=== PATIENT | female | born 1935 ===

== ENCOUNTER → 2017-11-10 | Outpatient (CLI) | payer MEDICARE, BC ==
[2016-12-27 12:33] VITALS: BMI 20.3
[~2017-11-10] MED LIST: AMLO-96 PO; ASPI-1471 PO; CALC1TAB31 PO; CARB15DR70 OP; CHOL100059 PO; CHOL200038 PO; CIN30PT PO; CITA-137 PO; DICL100G39 TOP; DONE5TAB74 PO; FES4PT PO; FESO8PT PO; FLU45SYR25 IM ONLY; FLUO-177 PO; FLUO-201 PO; FLUO-202 PO; FLUO40CA76 PO; GUAI237L21 PO; IBUP100T51 PO; IBUP100T52 PO; IBUP1TAB90 PO; LEVO-3 PO; LEVO88TA45 PO; LISI-362 PO; LISI20TA29 PO; LISI30TA49 PO; LISI5TAB25 PO; LOPE-147 PO; MAG-65 PO; MELO-205 PO; MELO-207 PO; METO-233 PO; METO100T20 PO; MOM PO; NEBI10TA4 PO; POLY17PO25 PO; POTA-53 PO; SIMV-54 PO; SIMV10TA98 PO; SOLI10TA8 PO; SOLI5TAB PO; SPIR25TA78 PO; SULF-198 PO; TROS20TA4 PO; VIT1CAPS9 PO
== END ==
LOC: LAB 11:06
PROVIDERS: ATTEND Emergency Medicine
DX: E21.3 Hyperparathyroidism, unspecified (principal)
CPT/HCPCS: 36415; 82310

== ENCOUNTER → 2017-12-09 | Outpatient (CLI) | payer MEDICARE, BC ==
[2016-12-27 12:33] VITALS: BMI 20.3
[~2017-12-09] MED LIST changes: -CARB15DR70 OP; +CARB15DR72 OP
== END ==
LOC: ZZSPRING 02:41
PROVIDERS: ATTEND Emergency Medicine
DX: E21.3 Hyperparathyroidism, unspecified (principal)
CPT/HCPCS: 36415; 82310

== ENCOUNTER → 2018-01-06 | Outpatient (CLI) | payer MEDICARE, BC ==
[2016-12-27 12:33] VITALS: BMI 20.3
== END ==
LOC: ZZSPRING 01:09
PROVIDERS: ATTEND Emergency Medicine
DX: E21.3 Hyperparathyroidism, unspecified (principal)
CPT/HCPCS: 36415; 82310

== ENCOUNTER → 2018-02-10 | Outpatient (CLI) | payer MEDICARE, BC ==
[2016-12-27 12:33] VITALS: BMI 20.3
== END ==
LOC: ZZSPRING 01:28
PROVIDERS: ATTEND Emergency Medicine
DX: E21.3 Hyperparathyroidism, unspecified (principal)
CPT/HCPCS: 36415; 82310

== ENCOUNTER → 2018-03-10 | Outpatient (CLI) | payer MEDICARE, BC ==
[2016-12-27 12:33] VITALS: BMI 20.3
== END ==
LOC: ZZSPRING 01:36
PROVIDERS: ATTEND Emergency Medicine
DX: E21.3 Hyperparathyroidism, unspecified (principal)
CPT/HCPCS: 36415; 82310

== ENCOUNTER → 2018-03-23 | Outpatient (CLI) | payer MEDICARE, BC ==
[2016-12-27 12:33] VITALS: BMI 20.3
[~2018-03-23] MED LIST changes: +LEVO75TA73 PO; -SPIR25TA78 PO; +SPIR25TA80 PO
[2018-03-23 09:12] LABS: PLATELET COUNT, AUTOMATED 198 K/uL (150-450)
== END ==
LOC: LAB 08:41
PROVIDERS: ATTEND Emergency Medicine
DX: E21.3 Hyperparathyroidism, unspecified (principal); R53.81 Other malaise
CPT/HCPCS: 36415; 82040; 82247; 82306; 82310; 82374; 82435; 82565; 82947; 84075; 84132; 84155; 84295; 84443; 84450; 84460; 84520; 85025

== ENCOUNTER → 2018-04-14 | Outpatient (CLI) | payer MEDICARE, BC ==
[2016-12-27 12:33] VITALS: BMI 20.3
== END ==
LOC: ZZSPRING 01:02
PROVIDERS: ATTEND Emergency Medicine
DX: E21.3 Hyperparathyroidism, unspecified (principal)
CPT/HCPCS: 36415; 82310

== ENCOUNTER → 2018-05-12 | Outpatient (CLI) | payer MEDICARE, BC ==
[2016-12-27 12:33] VITALS: BMI 20.3
[~2018-05-12] MED LIST changes: +MEMA5TAB14 PO
== END ==
LOC: ZZSPRING 01:09
PROVIDERS: ATTEND Emergency Medicine
DX: E21.3 Hyperparathyroidism, unspecified (principal)
CPT/HCPCS: 36415; 82310

== ENCOUNTER 2018-06-01 10:57 | Emergency (ER) | payer MEDICARE, BC ==
[2016-12-27 12:33] VITALS: Wt 71.7 kg
[~2018-06-01 10:57] MED LIST changes: +AMLO-111 PO; -AMLO-96 PO; +VITA100014 PO
[2018-06-01] MEDS ORDERED: ASPIRIN 325 MG ENTERIC COATED PO ONE (11:25)
--- NOTE | 2018-06-01 11:26 | ER Report ---
History and Physical Time Seen By MD: 11:15 Hx. of Stated Complaint: chest pain (ROBYN VELAZQUEZ MD) HPI/ROS CHIEF COMPLAINT: chest pain HISTORY OF PRESENT ILLNESS: Patient is 82-year-old female without prior history of cardiac problems who was eating dinner last night after which she went to stand up and felt sudden onset of chest pain under her left breast. She states that the pain lasted approximately 2-3 minutes and did not radiate to arms shoulders or back, and was followed by very mild dull pain that went away after a few minutes. She states that pain briefly recurred this morning though not as it did last night. Patient has not had recent similar pain. Patient does not get exertional pain or shortness of breath. Patient reports history of stroke though does not recall details, and is not on blood thinner. 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 Patient was evaluated by her nurse this morning and sent here for further evaluation. Patient denies nausea, vomiting, shortness breath, stomach pain other than her baseline discomfort from constipation. Patient states her last stool was yesterday and was normal for her and is not obstipated date. Patient does not have new swelling or pain in legs. REVIEW OF SYSTEMS: Constitutional: No fever, no chills. Eyes: No discharge. ENT: No sore throat. Cardiovascular: above Respiratory: No cough, no shortness of breath. Gastrointestinal: No abdominal pain, no vomiting. Genitourinary: No hematuria. Musculoskeletal: No back pain. Skin: No rashes. Neurological: No headache. (ROBYN VELAZQUEZ MD) Allergies: Coded Allergies: Penicillins (Unverified Allergy, Unknown, Swelling, 06/01/18) acetaminophen (Unverified Allergy, Unknown, Swelling, 06/01/18) codeine (Verified Allergy, Unknown, MENTAL STATUS CHANGES, 06/01/18) trospium (Verified Adverse Reaction, Intermediate, Nausea and decreased appetite, 06/01/18) Home Meds Active Scripts Cinacalcet Hcl (SENSIPAR) 30 Mg Tablet, 1 TAB PO DAILY, #90 TAB 3 Refills Prov:SEAN OROZCO MD 05/21/18 Metoprolol Succinate (METOPROLOL SUCCINATE) 100 Mg Tab.er.24h, 1 TAB PO QDAY, #90 TAB 3 Refills Prov:SEAN OROZCO MD 05/19/18 Vitamin E (Dl,Tocopheryl Acet) (VITAMIN E) 1,000 Unit Capsule, 2000 UNIT PO DAILY, #60 CAPSULE 11 Refills Prov:SEAN OROZCO MD 05/19/18 Solifenacin Succinate (VESICARE) 10 Mg Tablet, 10 MG PO DAILY, #90 TAB 1 Refill Prov:SEAN OROZCO MD 04/16/18 Levothyroxine Sodium (LEVOTHYROXINE SODIUM) 75 Mcg Tablet, 75 MCG PO QDAY, #90 TAB 3 Refills Prov:SEAN OROZCO MD 04/16/18 Polyethylene Glycol 3350 (MIRALAX) 17 Gm Powd.pack, 17 GM PO DAILY, #90 PKT 3 Refills Prov:SEAN OROZCO MD 03/17/18 Citalopram Hydrobromide (CITALOPRAM HBR) 10 Mg Tablet, 10 MG PO QDAY, #90 TAB 3 Refills Prov:SEAN OROZCO MD 02/03/18 Amlodipine Besylate (AMLODIPINE BESYLATE) 5 Mg Tablet, 1 TAB PO QDAY, #90 TAB 4 Refills Prov:SEAN OROZCO MD 08/22/17 Aspirin (ASPIR 81) 81 Mg Tablet.dr, 1 TAB PO QDAY, #90 TAB 3 Refills Prov:SEAN OROZCO MD 08/22/17 Simvastatin (SIMVASTATIN) 40 Mg Tablet, 40 MG PO HS, #90 TAB 4 Refills Prov:SEAN OROZCO MD 08/22/17 Carboxymethylcellulose Sodium (REFRESH TEARS) 15 Ml Drops, 2 GTT OP BID, #1 BOT 11 Refills Prov:SEAN OROZCO MD 03/18/17 Carboxymethylcellulose Sodium (REFRESH TEARS) 15 Ml Drops, 15 ML OP BID, #3 BOT 3 Refills Prov:SEAN OROZCO MD 03/17/17 Reported Medications Guaifenesin/Dextromethorphan (Robitussin Cough-Chest Dm Liq) 100 Mg-5 Mg/5 Ml Liquid, 5 ML PO 05/05/17 Magnesium Hydroxide (MILK OF MAGNESIA) 400 Mg/5 Ml Oral.susp, 15 ML PO PRN for prn, BOTTLE 05/05/17 Mag Hydrox/Aluminum Hyd/Simeth (Maalox Advanced Suspension) 200 Mg-200 Mg-20 Mg/5 Ml Oral.susp, 15 ML PO PRN for prn 05/05/17 Loperamide Hcl (ANTI-DIARRHEA) 2 Mg Tablet, 2 TAB PO PRN for prn 05/05/17 Calcium Carbonate/Mag Hydrox (ANTACID EXTRA STRNGTH TAB CHEW) 1 Each Tab.chew, 2 TAB PO PRN for prn, TAB.CHEW 05/05/17 Cholecalciferol (Vitamin D3) (VITAMIN D3) 1,000 Unit Capsule, 1 CAP PO DAILY, CAPSULE 05/05/17 Reviewed Nurses Notes: Yes Old Medical Records Reviewed: Yes (ROBYN VELAZQUEZ MD) Hx Smoking: No Smoking Status: Never Smoker Exposure to Second Hand Smoke?: No Hx Substance Use Disorder: No Hx Alcohol Use: No (ROBYN VELAZQUEZ MD) Constitutional Vital Sign - Last 24 Hours 06/01/18 06/01/18 06/01/18 06/01/18 10:57 11:00 11:03 11:27 Pulse 60 60 Resp 11 B/P (MAP) 132/89 (103) Pulse Ox 92 O2 Delivery Nasal Cannula O2 Flow Rate 2.0 2 06/01/18 06/01/18 06/01/18 06/01/18 11:30 11:57 12:18 12:30 Pulse 60 Resp 14 B/P (MAP) 116/86 (96) 131/84 (100) 124/87 (99) Pulse Ox 92 O2 Delivery Nasal Cannula O2 Flow Rate 2 06/01/18 06/01/18 06/01/18 12:32 13:00 13:02 Pulse 60 59 Resp 17 B/P (MAP) 112/95 (101) Pulse Ox 97 O2 Delivery Nasal Cannula O2 Flow Rate 2 (MIROSLAVA VELAZQUEZ MD) Physical Exam General Appearance: The patient is alert, has no immediate need for airway protection and no signs of toxicity. Eyes: Pupils equal and round no pallor or injection. ENT, Mouth: Mucous membranes are moist. Respiratory: There are no retractions, lungs are clear to auscultation. Cardiovascular: Regular rate and rhythm. no m/r/g. No carotid bruit Gastrointestinal: Abdomen is soft; very mild ttp, no masses, bowel sounds normal. Neurological: alert, oriented, nad Skin: Warm and dry, no rashes. Musculoskeletal: Extremities are nontender, nonswollen and have full range of motion. DIFFERENTIAL DIAGNOSIS: After history and physical exam differential diagnosis was considered for chest pain including but not limited to myocardial ischemia, pericarditis pulmonary embolus, chest wall pain, pleural inflammation and pulmonary infectious causes, Aortic dissection (ROBYN VELAZQUEZ MD) Medical Decision Making Data Points Result Diagram: 06/01/18 1108 06/01/18 1108 Laboratory Hematology Test 06/01/18 11:08 Red Blood Count 4.87 M/uL (4.17-5.56) Mean Corpuscular Volume 90.2 fL (80.0-96.0) Mean Corpuscular Hemoglobin 30.5 pg (26.0-33.0) Mean Corpuscular Hemoglobin Concent 33.9 g/dL (32.0-36.0) Red Cell Distribution Width 14.6 % (11.5-14.5) Mean Platelet Volume 9.3 fL (7.2-11.1) Neutrophils (%) (Auto) 61.3 % (39.4-72.5) Lymphocytes (%) (Auto) 26.1 % (17.6-49.6) Monocytes (%) (Auto) 7.4 % (4.1-12.4) Eosinophils (%) (Auto) 4.0 % (0.4-6.7) Basophils (%) (Auto) 1.2 % (0.3-1.4) Nucleated RBC Relative Count (auto) 0.0 /100WBC Neutrophils # (Auto) 4.1 K/uL (2.0-7.4) Lymphocytes # (Auto) 1.7 K/uL (1.3-3.6) Monocytes # (Auto) 0.5 K/uL (0.3-1.0) Eosinophils # (Auto) 0.3 K/uL (0.0-0.5) Basophils # (Auto) 0.1 K/uL (0.0-0.1) Nucleated RBC Absolute Count (auto) 0.00 K/uL Sodium Level 141 mmol/L (137-145) Potassium Level 3.7 mmol/L (3.5-5.0) Chloride Level 105 mmol/L (98-107) Carbon Dioxide Level 26 mmol/L (22-31) Blood Urea Nitrogen 19 mg/dl (7-18) Creatinine 0.90 mg/dl (0.52-1.04) Glomerular Filtration Rate Calc 59.8 Random Glucose 101 mg/dl (75-110) Calcium Level 8.7 mg/dl (8.4-10.2) Total Bilirubin 0.6 mg/dl (0.2-1.3) Aspartate Amino Transf (AST/SGOT) 22 U/L (0-35) Alanine Aminotransferase (ALT/SGPT) 25 U/L (0-56) Alkaline Phosphatase 68 U/L (0-126) Troponin I < 0.012 ng/ml Total Protein 6.7 g/dl (6.3-8.2) Albumin 4.0 g/dl (3.5-5.0) Lipase 64 U/L (23-300) Chemistry Test 06/01/18 11:08 White Blood Count 6.7 k/uL (4.5-11.0) Red Blood Count 4.87 M/uL (4.17-5.56) Hemoglobin 14.9 g/dL (12.0-16.0) Hematocrit 44.0 % (34.0-47.0) Mean Corpuscular Volume 90.2 fL (80.0-96.0) Mean Corpuscular Hemoglobin 30.5 pg (26.0-33.0) Mean Corpuscular Hemoglobin Concent 33.9 g/dL (32.0-36.0) Red Cell Distribution Width 14.6 % (11.5-14.5) Platelet Count 219 K/uL (150-450) Mean Platelet Volume 9.3 fL (7.2-11.1) Neutrophils (%) (Auto) 61.3 % (39.4-72.5) Lymphocytes (%) (Auto) 26.1 % (17.6-49.6) Monocytes (%) (Auto) 7.4 % (4.1-12.4) Eosinophils (%) (Auto) 4.0 % (0.4-6.7) Basophils (%) (Auto) 1.2 % (0.3-1.4) Nucleated RBC Relative Count (auto) 0.0 /100WBC Neutrophils # (Auto) 4.1 K/uL (2.0-7.4) Lymphocytes # (Auto) 1.7 K/uL (1.3-3.6) Monocytes # (Auto) 0.5 K/uL (0.3-1.0) Eosinophils # (Auto) 0.3 K/uL (0.0-0.5) Basophils # (Auto) 0.1 K/uL (0.0-0.1) Nucleated RBC Absolute Count (auto) 0.00 K/uL Glomerular Filtration Rate Calc 59.8 Calcium Level 8.7 mg/dl (8.4-10.2) Total Bilirubin 0.6 mg/dl (0.2-1.3) Aspartate Amino Transf (AST/SGOT) 22 U/L (0-35) Alanine Aminotransferase (ALT/SGPT) 25 U/L (0-56) Alkaline Phosphatase 68 U/L (0-126) Troponin I < 0.012 ng/ml Total Protein 6.7 g/dl (6.3-8.2) Albumin 4.0 g/dl (3.5-5.0) Lipase 64 U/L (23-300) (MIROSLAVA VELAZQUEZ MD) EKG/Imaging EKG Interpretation 12 lead EKG: Rhythm: normal sinus rhythm [place]: normal QRS: normal ST segments: biphasic V4, flipped V5, flat T avR Monitor Interpretation: Normal Sinus Rhythm (ROBYN VELAZQUEZ MD) ED Course/Re-evaluation ED Course Patient presents approximately 15 hours after onset of left-sided chest pain last night which lasted for a couple minutes followed by a mild dull ache. Patient has not had similar significant pain in past. Initial evaluation unremarkable; will rpt 3 hour trop at which point consider stress testing v close f/u. However, pt would not be candidate fro cath intervention unless she rescinds DNR orders; reasonable for conservative management at this point with low posttest prob for ACS. (ROBYN VELAZQUEZ MD) ED Course The patient was initially seen for an episode of chest pain. The plan was to obtain a 2nd troponin 3 hours after the 1st in order to trend the troponins and determine definitive treatment. He was that although the patient did not want to undergo a cardiac catheterization, if she developed an NSTEMI she could be further medically managed. The patient asked to speak with me about the 2nd troponin. She told both myself and her nurse that she did not want the 2nd troponin. She was very clear that she does not care if she dies at the age of 82. I spoke with her at length. She is alert and oriented and mentally capable of making her own healthcare decisions. She denies SI. She does not seem depressed. She was smiling and laughing during our conversation. She states that she no longer has her home and no longer works, so she sees herself as already accomplishing everything she wanted to in life. I explained to her that if her 2nd troponin showed that she may have a blockage in her heart, it may be as simple as having her take a full aspirin a day instead of a baby aspirin. She said that she didn't even want that intervention. She states that she would continue to take a baby aspirin. I specifically told her that her decision could end up in if she had heart disease that was not optimally managed. She voiced that she understands completely. I even asked her if her family and friends would be upset with her decision, and she said no. I think this is reasonable. I think she is low risk for acute ACS, but a second troponin would have been the gold standard in this case. I am not going to make her sign out AMA. She will continue to take her 81mg ASA a day. Decision to Disposition Date: Jun 01, 2018 Decision to Disposition Time: 14:58 (MIROSLAVA VELAZQUEZ MD) Depart Departure Latest Vital Signs Vital Signs Date Time Temp Pulse Resp B/P (MAP) Pulse Ox O2 Delivery O2 Flow Rate FiO2 06/01/18 13:02 59 17 97 Nasal Cannula 2 06/01/18 13:00 112/95 (101) (MIROSLAVA VELAZQUEZ MD) Impression: Primary Impression: Chest pain Condition: Improved Disposition: HOME OR SELF-CARE Referrals: SEAN OROZCO MD (PCP) Patient Instructions: Chest Pain (ED) Problem Qualifiers Primary Impression: Chest pain Chest pain type: unspecified Qualified Codes: R07.9 - Chest pain, unspecified ROBYN VELAZQUEZ MD Jun 01, 2018 11:26 MIROSLAVA VELAZQUEZ MD Jun 01, 2018 14:59
[2018-06-01 11:37] LABS: PLATELET COUNT, AUTOMATED 219 K/uL (150-450)
--- NOTE | 2018-06-01 12:38 | EKG ---
FACILITY: [facility] - [place] PATIENT NAME: ANJELICA DELUNA : [id number] MR: [id number] V: [id number] EXAM DATE: ORDERING PHYSICIAN: ROBYN VELAZQUEZ TECHNOLOGIST: ANNETTE Test Reason : CP Blood Pressure : / mmHG Vent. Rate : 064 BPM Atrial Rate : 064 BPM P-R Int : 202 ms QRS Dur : 088 ms QT Int : 448 ms P-R-T Axes : 048 -09 030 degrees QTc Int : 462 ms Normal sinus rhythm Nonspecific T wave abnormality Abnormal ECG When compared with ECG of 26-DEC-2016 20:42, QT has lengthened Confirmed by KASHIF RAMÍREZ ([id number]) on 06/02/2018 6:38:01 AM Referred By: MARCUS Confirmed By:KASHIF RAMÍREZ
--- NOTE | 2018-06-01 13:50 | RADIOLOGY IMAGING REPORT ---
FACILITY: [facility] PATIENT NAME: Deidar More : 1935 MR: [id number] V: [id number] EXAM DATE: ORDERING PHYSICIAN: ROBYN VELAZQUEZ TECHNOLOGIST: Location: [facility] [place] Patient: Deidra More : 1935 Visit/Account:[id number] Date of Sevice: 06/01/2018 Exam type: CHEST PA AND LAT History: Chest pain Comparison: December 27, 2016. Findings: The lungs are free of acute effusions, infiltrates or edema. Nodular density projects over the later al aspect the left lung base which is related to a calcified left breast nodule seen on a prior CT. Cardiac silhouette is normal in size. There is moderate ectasia the thoracic aorta. 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 There are old right-sided rib fractures IMPRESSION: 1. No acute cardiopulmonary process seen Report Dictated By: Amanda Cazares MD at 06/01/2018 1:45 PM Report E-Signed By: Amanda Cazares MD at 06/01/2018 1:47 PM WSN:[id number]
[2018-06-01 14:30] VITALS: BP 163/96
== END 2018-06-01 15:05 | disposition home or self-care (01) ==
LOC: ER 11:24
DX: R07.89 Other chest pain (principal)
CPT/HCPCS: 71046; 83690; 84484; 85025; 93005; 99284; A9270; 82040; 82247; 82310; 82374; 82435; 82565; 82947; 84075; 84132; 84155; 84295; 84450; 84460; 84520

== ENCOUNTER → 2018-06-16 | Outpatient (CLI) | payer MEDICARE, BC ==
[2016-12-27 12:33] VITALS: BMI 20.3
== END ==
LOC: ZZSPRING 00:22
PROVIDERS: ATTEND Emergency Medicine
DX: E21.3 Hyperparathyroidism, unspecified (principal); I10 Essential (primary) hypertension; E87.6 Hypokalemia; E78.5 Hyperlipidemia, unspecified; E03.9 Hypothyroidism, unspecified
CPT/HCPCS: 36415; 82310; 84443

== ENCOUNTER → 2018-07-14 | Outpatient (CLI) | payer MEDICARE, BC ==
[2016-12-27 12:33] VITALS: BMI 20.3
[~2018-07-14] MED LIST changes: +DEN60I SUBQ
== END ==
LOC: ZZSPRING 02:13
PROVIDERS: ATTEND Emergency Medicine
DX: E21.3 Hyperparathyroidism, unspecified (principal); E03.9 Hypothyroidism, unspecified; I10 Essential (primary) hypertension; E87.6 Hypokalemia; E78.5 Hyperlipidemia, unspecified
CPT/HCPCS: 36415; 82310; 84443

== ENCOUNTER → 2018-08-11 | Outpatient (CLI) | payer MEDICARE, BC ==
[2016-12-27 12:33] VITALS: BMI 20.3
[~2018-08-11] MED LIST changes: +NITR0.4T3 SL
== END ==
LOC: ZZSPRING 00:55
PROVIDERS: ATTEND Emergency Medicine
DX: E21.3 Hyperparathyroidism, unspecified (principal)
CPT/HCPCS: 36415; 82310

== ENCOUNTER → 2018-09-10 | Outpatient (CLI) | payer MEDICARE, BC ==
[2016-12-27 12:33] VITALS: BMI 20.3
[~2018-09-10] MED LIST changes: -CALC1TAB31 PO; +CALC1TAB79 PO
== END ==
LOC: ZZSPRING 01:10
PROVIDERS: ATTEND Emergency Medicine
DX: E21.3 Hyperparathyroidism, unspecified (principal)
CPT/HCPCS: 36415; 82310

== ENCOUNTER → 2018-10-13 | Outpatient (CLI) | payer MEDICARE, BC ==
[2016-12-27 12:33] VITALS: BMI 20.3
[~2018-10-13] MED LIST changes: -AMLO-111 PO; +AMLO-125 PO
== END ==
LOC: ZZSPRING 01:04
PROVIDERS: ATTEND Emergency Medicine
DX: E21.3 Hyperparathyroidism, unspecified (principal)
CPT/HCPCS: 36415; 82310

== ENCOUNTER → 2018-11-10 | Outpatient (CLI) | payer MEDICARE, BC ==
[2016-12-27 12:33] VITALS: BMI 20.3
== END ==
LOC: ZZSPRING 11-09 08:04 → EDSTATUS 11-09 08:25 → ZZSPRING 02:53
PROVIDERS: ATTEND Emergency Medicine
DX: E21.3 Hyperparathyroidism, unspecified (principal)
CPT/HCPCS: 36415; 82310

== ENCOUNTER → 2018-12-08 | Outpatient (CLI) | payer MEDICARE, BC ==
[2016-12-27 12:33] VITALS: BMI 20.3
[~2018-12-08] MED LIST changes: +DIPH0.5D12 IM; +FLUO20TA2 PO; +PNEI IJ
== END ==
LOC: ZZSPRING 02:03
PROVIDERS: ATTEND Emergency Medicine
DX: E21.3 Hyperparathyroidism, unspecified (principal)
CPT/HCPCS: 36415; 82310

== ENCOUNTER → 2019-01-12 | Outpatient (CLI) | payer MEDICARE, BC ==
[2016-12-27 12:33] VITALS: BMI 20.3
[~2019-01-12] MED LIST changes: -DIPH0.5D12 IM; +DIPH0.5S2 IM
== END ==
LOC: ZZSPRING 00:59
PROVIDERS: ATTEND Emergency Medicine
DX: E21.3 Hyperparathyroidism, unspecified (principal)
CPT/HCPCS: 36415; 82310

== ENCOUNTER → 2019-02-09 | Outpatient (CLI) | payer MEDICARE, BC ==
[2016-12-27 12:33] VITALS: BMI 20.3
== END ==
LOC: EDSTATUS 07:09 → LAB 07:13
PROVIDERS: ATTEND Emergency Medicine
DX: E21.3 Hyperparathyroidism, unspecified (principal)
CPT/HCPCS: 36415; 82310

== ENCOUNTER → 2019-03-01 | Outpatient (CLI) | payer MEDICARE, BC ==
[2016-12-27 12:33] VITALS: BMI 20.3
[~2019-03-01] MED LIST changes: +SIMV-49 PO
[2019-03-01 10:04] LABS: PLATELET COUNT, AUTOMATED 192 K/uL (150-450)
== END ==
LOC: LAB 09:41
PROVIDERS: ATTEND Emergency Medicine
DX: M81.0 Age-related osteoporosis without current pathological fracture (principal); F32.9 Major depressive disorder, single episode, unspecified; E21.3 Hyperparathyroidism, unspecified; E78.5 Hyperlipidemia, unspecified; E03.9 Hypothyroidism, unspecified; I10 Essential (primary) hypertension
CPT/HCPCS: 36415; 82040; 82247; 82306; 82310; 82374; 82435; 82565; 82947; 84075; 84132; 84155; 84295; 84443; 84450; 84460; 84520; 85025

== ENCOUNTER → 2019-03-02 | Outpatient (CLI) | payer MEDICARE, BC ==
[2016-12-27 12:33] VITALS: BMI 20.3
== END ==
LOC: ZZSPRING 02:04
PROVIDERS: ATTEND Emergency Medicine
DX: E21.3 Hyperparathyroidism, unspecified (principal); M81.0 Age-related osteoporosis without current pathological fracture; I10 Essential (primary) hypertension; E03.9 Hypothyroidism, unspecified; E78.5 Hyperlipidemia, unspecified; F32.9 Major depressive disorder, single episode, unspecified; R29.6 Repeated falls
CPT/HCPCS: 36415; 81001; 82310

== ENCOUNTER 2019-03-06 11:02 | Emergency (ER) | payer MEDICARE, BC ==
[2016-12-27 12:33] VITALS: Wt 70.8 kg
[2019-03-06 11:06] VITALS: BP 152/101
--- NOTE | 2019-03-06 11:12 | ER Report ---
History and Physical Time Seen By MD: 11:10 HPI/ROS CHIEF COMPLAINT: Laceration left arm, fall HISTORY OF PRESENT ILLNESS: 83-year-old female patient presents to emergency room with complaint of laceration to the left arm. Patient did have a fall this morning. Patient states that she returned today, hit a table lost her balance and fell back. She states her head. Patient does have a deep laceration to the left forearm. Patient states she's not having any pain. She does have some bruising to the thumb and does have some tenderness there. She denies any fevers, chills, nausea, vomiting or diarrhea. Patient should have a headache, however the same headache that she has had intermittently for years. Patient states she is not taking any medication for this. She states that she is current on her tetanus shot. REVIEW OF SYSTEMS: Respiratory: No cough, no dyspnea. Cardiovascular: No chest pain, no palpitations. Gastrointestinal: No vomiting, no abdominal pain. Musculoskeletal: As noted above. Allergies: Coded Allergies: Penicillins (Unverified Allergy, Unknown, Swelling, 03/06/19) acetaminophen (Unverified Allergy, Unknown, Swelling, 03/06/19) codeine (Verified Allergy, Unknown, MENTAL STATUS CHANGES, 03/06/19) trospium (Verified Adverse Reaction, Intermediate, Nausea and decreased ap petite, 03/06/19) Home Meds Active Scripts Simvastatin (SIMVASTATIN) 20 Mg Tablet, 20 MG PO HS, #30 TAB 0 Refills Prov:SEAN OROZCO MD 03/05/19 Sulfamethoxazole/Trimet 800-160 Mg Tab (BACTRIM DS TABLET) 1 Each Tablet, 1 TAB PO Q12H, #20 TAB 0 Refills Prov:SEAN OROZCO MD 03/02/19 Solifenacin Succinate (VESICARE) 10 Mg Tablet, 10 MG PO DAILY, #30 TAB 11 Refills Prov:SEAN OROZCO MD 11/30/18 Fluoxetine Hcl (FLUOXETINE HCL) 20 Mg Tablet, 20 MG PO QDAY, #30 TAB 11 Refills Prov:SEAN OROZCO MD 11/16/18 Nitroglycerin (NITROGLYCERIN) 0.4 Mg Tab.subl, 0.4 MG SL Q5MIN, #20 TAB 0 Refills Prov:SEAN OROZCO MD 08/07/18 Amlodipine Besylate (AMLODIPINE BESYLATE) 5 Mg Tablet, 1 TAB PO QDAY, #90 TAB 1 Refill Prov:SEAN OROZCO MD 07/10/18 Metoprolol Succinate (METOPROLOL SUCCINATE) 100 Mg Tab.er.24h, 1 TAB PO QDAY, #90 TAB 3 Refills Prov:SEAN OROZCO MD 05/19/18 Levothyroxine Sodium (LEVOTHYROXINE SODIUM) 75 Mcg Tablet, 75 MCG PO QDAY, #90 TAB 3 Refills Prov:SEAN OROZCO MD 04/16/18 Carboxymethylcellulose Sodium (REFRESH TEARS) 15 Ml Drops, 2 GTT OP BID, #1 BOT 11 Refills Prov:SEAN OROZCO MD 03/18/17 Carboxymethylcellulose Sodium (REFRESH TEARS) 15 Ml Drops, 15 ML OP BID, #3 BOT 3 Refills Prov:SEAN OROZCO MD 03/17/17 Reported Medications Denosumab (PROLIA) 60 Mg/1 Ml Injs, 60 MG SUBQ Q6 months 06/22/18 Guaifenesin/Dextromethorphan (Robitussin Cough-Chest Dm Liq) 100 Mg-5 Mg/5 Ml L iquid, 5 ML PO 05/05/17 Magnesium Hydroxide (MILK OF MAGNESIA) 400 Mg/5 Ml Oral.susp, 15 ML PO PRN for prn, BOTTLE 05/05/17 Mag Hydrox/Aluminum Hyd/Simeth (Maalox Advanced Suspension) 200 Mg-200 Mg-20 Mg/5 Ml Oral.susp, 15 ML PO PRN for prn 05/05/17 Loperamide Hcl (ANTI-DIARRHEA) 2 Mg Tablet, 2 TAB PO PRN for prn 05/05/17 Calcium Carbonate/Mag Hydrox (ANTACID EXTRA STRNGTH TAB CHEW) 1 Each Tab.chew, 2 TAB PO PRN for prn, TAB.CHEW 05/05/17 Cholecalciferol (Vitamin D3) (VITAMIN D3) 1,000 Unit Capsule, 1 CAP PO DAILY, CAPSULE 05/05/17 Discontinued Scripts Cinacalcet Hcl (SENSIPAR) 30 Mg Tablet, 1 TAB PO Q3D, #45 TAB 3 Refills Prov:SEAN OROZCO MD 10/13/18 Simvastatin (SIMVASTATIN) 40 Mg Tablet, 40 MG PO HS, #90 TAB 1 Refill Prov:SEAN OROZCO MD 07/10/18 Vitamin E (Dl,Tocopheryl Acet) (VITAMIN E) 1,000 Unit Capsule, 2000 UNIT PO DAILY, #60 CAPSULE 11 Refills Prov:SEAN OROZCO MD 05/19/18 Polyethylene Glycol 3350 (MIRALAX) 17 Gm Powd.pack, 17 GM PO DAILY, #90 PKT 3 Refills Prov:SEAN OROZCO MD 03/17/18 Aspirin (ASPIR 81) 81 Mg Tablet.dr, 1 TAB PO QDAY, #90 TAB 3 Refills Prov:SEAN OROZCO MD 08/22/17 Past Medical/Surgical History Patient has a past medical history of CVA, hypertension, COPD, wears 2 L of oxygen at all time. Patient has a surgical history of hysterectomy. Reviewed Nurses Notes: Yes Hx Smoking: No Smoking Status: Never Smoker Exposure to Second Hand Smoke?: No Hx Substance Use Disorder: No Hx Alcohol Use: No Constitutional Vital Sign - Last 24 Hours 03/06/19 03/06/19 03/06/19 03/06/19 11:06 12:00 12:30 13:00 Temp 98.5 Pulse 60 60 58 56 Resp 20 11 13 32 B/P (MAP) 152/101 Pulse Ox 93 96 O2 Delivery Nasal Cannula Physical Exam General Appearance: The patient is alert, has no immediate need for airway protection and no current signs of toxicity. Respiratory: Chest is non tender, lungs are clear to auscultation. Cardiac: regular rate and rhythm Gastrointestinal: Abdomen is soft and non tender, no masses, bowel sounds normal. Musculoskeletal: Neck: Neck is supple and non tender. Extremities have full range of motion and are non tender. Patient does have some tenderness to the left thumb, she has bruising. Skin: No rashes or lesions. Patient has a 16 cm laceration to the left forearm, does go down into the subcutaneous tissue, ligaments are visualized, however there does not appear to be any ligamentous injury. DIFFERENTIAL DIAGNOSIS: After history and physical exam differential diagnosis was considered for laceration, intracranial hemorrhage, concussion, thumb fr acture. Medical Decision Making Data Points Result Diagram: 03/06/19 1120 03/06/19 1120 Laboratory Hematology Test 03/06/19 11:20 Red Blood Count 4.52 M/uL (4.17-5.56) Mean Corpuscular Volume 90.3 fL (80.0-96.0) Mean Corpuscular Hemoglobin 30.5 pg (26.0-33.0) Mean Corpuscular Hemoglobin Concent 33.7 g/dL (32.0-36.0) Red Cell Distribution Width 14.3 % (11.5-14.5) Mean Platelet Volume 8.6 fL (7.2-11.1) Neutrophils (%) (Auto) 66.0 % (39.4-72.5) Lymphocytes (%) (Auto) 22.6 % (17.6-49.6) Monocytes (%) (Auto) 6.8 % (4.1-12.4) Eosinophils (%) (Auto) 3.2 % (0.4-6.7) Basophils (%) (Auto) 1.4 % (0.3-1.4) Nucleated RBC Relative Count (auto) 0.0 /100WBC Neutrophils # (Auto) 4.0 K/uL (2.0-7.4) Lymphocytes # (Auto) 1.4 K/uL (1.3-3.6) Monocytes # (Auto) 0.4 K/uL (0.3-1.0) Eosinophils # (Auto) 0.2 K/uL (0.0-0.5) Basophils # (Auto) 0.1 K/uL (0.0-0.1) Nucleated RBC Absolute Count (auto) 0.00 K/uL Prothrombin Time 12.9 seconds (12.0-14.4) Prothromb Time International Ratio 0.97 Activated Partial Thromboplast Time 27 seconds (23-35) Sodium Level 140 mmol/L (137-145) Potassium Level 4.0 mmol/L (3.5-5.0) Chloride Level 107 mmol/L (98-107) Carbon Dioxide Level 24 mmol/L (22-31) Blood Urea Nitrogen 18 mg/dl (7-18) Creatinine 1.00 mg/dl (0.52-1.04) Glomerular Filtration Rate Calc 52.8 Random Glucose 105 mg/dl (75-110) Calcium Level 9.1 mg/dl (8.4-10.2) Total Bilirubin 0.7 mg/dl (0.2-1.3) Aspartate Amino Transf (AST/SGOT) 21 U/L (0-35) Alanine Aminotransferase (ALT/SGPT) 29 U/L (0-56) Alkaline Phosphatase 53 U/L (0-126) Total Protein 6.5 g/dl (6.3-8.2) Albumin 3.7 g/dl (3.5-5.0) Chemistry Test 03/06/19 11:20 White Blood Count 6.1 k/uL (4.5-11.0) Red Blood Count 4.52 M/uL (4.17-5.56) Hemoglobin 13.8 g/dL (12.0-16.0) Hematocrit 40.8 % (34.0-47.0) Mean Corpuscular Volume 90.3 fL (80.0-96.0) Mean Corpuscular Hemoglobin 30.5 pg (26.0-33.0) Mean Corpuscular Hemoglobin Concent 33.7 g/dL (32.0-36.0) Red Cell Distribution Width 14.3 % (11.5-14.5) Platelet Count 190 K/uL (150-450) Mean Platelet Volume 8.6 fL (7.2-11.1) Neutrophils (%) (Auto) 66.0 % (39.4-72.5) Lymphocytes (%) (Auto) 22.6 % (17.6-49.6) Monocytes (%) (Auto) 6.8 % (4.1-12.4) Eosinophils (%) (Auto) 3.2 % (0.4-6.7) Basophils (%) (Auto) 1.4 % (0.3-1.4) Nucleated RBC Relative Count (auto) 0.0 /100WBC Neutrophils # (Auto) 4.0 K/uL (2.0-7.4) Lymphocytes # (Auto) 1.4 K/uL (1.3-3.6) Monocytes # (Auto) 0.4 K/uL (0.3-1.0) Eosinophils # (Auto) 0.2 K/uL (0.0-0.5) Basophils # (Auto) 0.1 K/uL (0.0-0.1) Nucleated RBC Absolute Count (auto) 0.00 K/uL Prothrombin Time 12.9 seconds (12.0-14.4) Prothromb Time International Ratio 0.97 Activated Partial Thromboplast Time 27 seconds (23-35) Glomerular Filtration Rate Calc 52.8 Calcium Level 9.1 mg/dl (8.4-10.2) Total Bilirubin 0.7 mg/dl (0.2-1.3) Aspartate Amino Transf (AST/SGOT) 21 U/L (0-35) Alanine Aminotransferase (ALT/SGPT) 29 U/L (0-56) Alkaline Phosphatase 53 U/L (0-126) Total Protein 6.5 g/dl (6.3-8.2) Albumin 3.7 g/dl (3.5-5.0) Coagulation Test 03/06/19 11:20 Prothrombin Time 12.9 seconds Prothromb Time International Ratio 0.97 Activated Partial Thromboplast Time 27 seconds EKG/Imaging Imaging EXAMINATION: CT cervical spine without IV contrast HISTORY: Fall, hit head. Feels vessels atherosclerotic plaque of the aortic arch and carotid bulbs. COMPARISON: None. TECHNIQUE: Axial images were obtained from the skull base through the upper thoracic spine without IV contrast administration. Coronal and sagittal reformatted images were obtained from the axial source data. One of the following dose optimization techniques was utilized in the performance of this exam: Automated exposure control; adjustment of the mA and/or kV according to the patient's size; or use of an iterative rec onstruction technique. Specific details can be referenced in the facility's radiology CT exam operational policy. FINDINGS: Alignment: Normal. Cranio-cervical junction: Moderate joint space narrowing, sclerosis and bony spurring of the atlantoaxial joint, with a small pannus containing calcific ations. Vertebral bodies: Negative. Posterior elements: Mild facet hypertrophy at a few levels. Hardware: None. Disc spaces: Multilevel moderate to severe disc space narrowing and endplate sclerosis, worst at C5-6 and C6-7. Soft tissues: Negative. Visualized upper chest: Negative. IMPRESSION: 1. No acute fracture of the cervical spine. 2. Multilevel moderate to severe degenerative disc disease, and mild facet arthropathy. 3. 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 Report Dictated By: Victoria Rios MD at 03/06/2019 12:07 PM Report E-Signed By: Victoria Rios MD at 03/06/2019 12:11 PM EXAMINATION: Left forearm radiographs 2 views Left hand radiographs 3 views HISTORY: Fall with laceration, bruising to thumb. COMPARISON: None. FINDINGS: AP and lateral views of the left forearm, and PA, lateral and oblique views of the left hand are obtained. Bones: Bony structures are osteopenic. There is no acute fracture or dislocation visualized. Joint spaces: Mild joint space narrowing of the radiocarpal joint, severe joint space narrowing, sclerosis and bony spurring of the 1st CMC joint. Moderate joint space narrowing of the PIP and DIP joints, without bony erosions. Hardware: None. Alignment: Normal. Soft tissues: Negative. IMPRESSION: 1. Osteopenia without evidence of acute left forearm or left hand fracture. If the patient has persistent pain, repeat radiographs could be done in 7-10 days to assess for an occult fracture. 2. Mild degenerative joint disease of the left radiocarpal joint, severe degenerative joint disease of the left 1st CMC joint, and moderate degenerative joint disease and PIP and DIP joints, suspicious for osteoarthritis. Report Dictated By: Victoria Rios MD at 03/06/2019 12:11 PM Report E-Signed By: Victoria Rios MD at 03/06/2019 12:15 PM EXAMINATION: CT head without IV contrast HISTORY: Fall, hit head. COMPARISON: Brain MRI from 07/12/[address] head from 08/21/2016. TECHNIQUE: Contiguous axial images were obtained from the skull base to the vertex without intravenous contrast. Sagittal and coronal reformatted images are also submitted. One of the following dose optimization techniques was utilized in the performance of this exam: Automated exposure control; adjustment of the mA and/or kV according to the patient's size; or use of an iterative reconstruction technique. Specific details can be referenced in the facility's radiology CT exam operational policy. FINDINGS: Brain volume: Mild generalized atrophy with associated concordant prominence of the ventricular system. Ventricles: Normal. Acute ischemic changes: None. Hemorrhage: No acute intracranial hemorrhage. Masses/edema: None. Woo-white: Small chronic infarct in the left perisylvian frontal lobe is unchanged. White matter: Patchy and confluent hypodensities in the deep white matter bilaterally. Vessels: Calcified plaque of both carotid siphons. Extra-axial: Negative. Calvarium/scalp: No acute fracture. Skull base/visualized face: Negative. Visualized sinuses/orbits: Mild nasal septal deviation to the left. Previous lens surgery bilaterally. IMPRESSION: 1. No acute fracture, hemorrhage or intracranial mass lesion. No CT evidence of acute infarct. 2. Moderate to severe nonspecific white matter disease is suspicious for chronic small vessel ischemia and has slightly progressed from prior exam. 3. Small chronic infarct in the left frontal lobe, unchanged. Report Dictated By: Victoria Rios MD at 03/06/2019 12:03 PM Report E-Signed By: Victoria Rios MD at 03/06/2019 12:07 PM ED Course/Re-evaluation ED Course Patient was admitted to exam room, history and physical were obtained. Differential diagnoses were considered. On reexamination patient has a large wound measuring 22 cm to the left forearm, it does go down to the muscle. She is some tenderness to the left side of her head. A CT scan of the head, cervical spine, left hand and left forearm were done. There are no acute fractures, no acute findings noted. A CBC, CMP, PT and PTT were done. The lab results were unremarkable. I discussed the findings with the patient. The wound was anesthetized, cleaned and repaired as described below. We will go ahead and discharge patient home at this time. She is follow-up with her primary care provider in the next 7-10 days to have sutures removed. She is to limit activity by pain. She is to have the dressing changed twice a day. Patient verbalized understanding and agreement with plan. Procedure: Laceration repair. Verbal consent was obtained from the patient. The 22 cm laceration on the left forearm was anesthetized in the usual fashion. The wound was scrubbed, draped and explored to its base with a gloved finger. There were no deep structures involved. No tendon injury was identified. The wound was repaired with 6 simple interrupted subcuticular sutures using 4-0 Vicryl material, 36 simple interrupted sutures using 4-0 Prolene material. The wound repair was intermediate. The procedure was performed by myself. Decision to Disposition Date: Mar 06, 2019 Decision to Disposition Time: 13:44 Depart Departure Latest Vital Signs Vital Signs Date Time Temp Pulse Resp B/P (MAP) Pulse Ox O2 Delivery O2 Flow Rate FiO2 03/06/19 13:00 56 32 03/06/19 12:00 96 03/06/19 11:06 98.5 152/101 Nasal Cannula Impression: Primary Impression: Laceration Condition: Improved Disposition: HOME OR SELF-CARE Referrals: SEAN OROZCO MD (PCP) Patient Instructions: Laceration (ED) Additional Instructions: Keep wound dry for 48 hours. Follow up with your primary care provider in the next 7-10 days to have sutures removed. Monitor for signs of infection; redness, swelling, heat, discharge, increasing pain or red streaking. Take Tylenol or Ibuprofen as needed for pain. Return to the ER with any concerns. You may change dressing as needed. JACINTO ROSS Mar 06, 2019 11:12
[2019-03-06 11:33] LABS: PLATELET COUNT, AUTOMATED 190 K/uL (150-450)
[2019-03-06 11:42] LABS: INR 0.97
--- NOTE | 2019-03-06 12:13 | RADIOLOGY IMAGING REPORT ---
FACILITY: [facility] - [place] PATIENT NAME: Deidra More : 1935 MR: [id number] V: [id number] EXAM DATE: ORDERING PHYSICIAN: JACINTO ROSS TECHNOLOGIST: Location: [facility] Patient: Deidra More : 1935 Visit/Account:[id number] Date of Sevice: 03/06/2019 EXAMINATION: CT head without IV contrast HISTORY: Fall, hit head. COMPARISON: Brain MRI from 07/12/[address] head from 08/21/2016. TECHNIQUE: Contiguous axial images were obtained from the skull base to the vertex without intraven ous contrast. Sagittal and coronal reformatted images are also submitted. One of the following dose optimization techniques was utilized in the performance of this exam: Autom ated exposure control; adjustment of the mA and/or kV according to the patient's size; or use of an i terative reconstruction technique. Specific details can be referenced in the facility's radiology C T exam operational policy. FINDINGS: Brain volume: Mild generalized atrophy with associated concordant prominence of the ventricular syst em. Ventricles: Normal. Acute ischemic changes: None. Hemorrhage: No acute intracranial hemorrhage. Masses/edema: None. Woo-white: Small chronic infarct in the left perisylvian frontal lobe is unchanged. White matter: Patchy and confluent hypodensities in the deep white matter bilaterally. Vessels: Calcified plaque of both carotid siphons. Extra-axial: Negative. Calvarium/scalp: No acute fracture. Skull base/visualized face: Negative. Visualized sinuses/orbits: Mild nasal septal deviation to the left. Previous lens surgery bilaterall y. IMPRESSION: 1. No acute fracture, hemorrhage or intracranial mass lesion. No CT evidence of acute infarct. 2. Moderate to severe nonspecific white matter disease is suspicious for chronic small vessel ischemi a and has slightly progressed from prior exam. 3. Small chronic infarct in the left frontal lobe, unchanged. Report Dictated By: Victoria Rios MD at 03/06/2019 12:03 PM Report E-Signed By: Victoria Rios MD at 03/06/2019 12:07 PM WSN:[id number]
--- NOTE | 2019-03-06 12:17 | RADIOLOGY IMAGING REPORT ---
FACILITY: [facility] PATIENT NAME: Deidra More : 1935 MR: [id number] V: [id number] EXAM DATE: ORDERING PHYSICIAN: JACINTO ROSS TECHNOLOGIST: Location: [facility] - [place] Patient: Deidra More : 1935 Visit/Account:[id number] Date of Sevice: 03/06/2019 EXAMINATION: CT cervical spine without IV contrast HISTORY: Fall, hit head. Feels vessels atherosclerotic plaque of the aortic arch and carotid bulbs. COMPARISON: None. TECHNIQUE: Axial images were obtained from the skull base through the upper thoracic spine without I V contrast administration. Coronal and sagittal reformatted images were obtained from the axial [facility] e data. One of the following dose optimization techniques was utilized in the performance of this exam: Autom ated exposure control; adjustment of the mA and/or kV according to the patient's size; or use of an i terative reconstruction technique. Specific details can be referenced in the facility's radiology C T exam operational policy. FINDINGS: Alignment: Normal. Cranio-cervical junction: Moderate joint space narrowing, sclerosis and bony spurring of the atlantoa xial joint, with a small pannus containing calcifications. Vertebral bodies: Negative. Posterior elements: Mild facet hypertrophy at a few levels. Hardware: None. Disc spaces: Multilevel moderate to severe disc space narrowing and endplate sclerosis, worst at C5-6 and C6-7. Soft tissues: Negative. Visualized upper chest: Negative. IMPRESSION: 1. No acute fracture of the cervical spine. 2. Multilevel moderate to severe degenerative disc disease, and mild facet arthropathy. 3. 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 Report Dictated By: Victoria Rios MD at 03/06/2019 12:07 PM Report E-Signed By: Victoria Rios MD at 03/06/2019 12:11 PM WSN:[id number]
--- NOTE | 2019-03-06 12:22 | RADIOLOGY IMAGING REPORT ---
FACILITY: [facility] - [place], [place] PATIENT NAME: Deidra More : 1935 MR: [id number] V: [id number] EXAM DATE: ORDERING PHYSICIAN: JACINTO ROSS TECHNOLOGIST: Location: [facility] [place] Patient: Deidra More : 1935 Visit/Account:[id number] Date of Sevice: 03/06/2019 EXAMINATION: Left forearm radiographs 2 views Left hand radiographs 3 views HISTORY: Fall with laceration, bruising to thumb. COMPARISON: None. FINDINGS: AP and lateral views of the left forearm, and PA, lateral and oblique views of the left umaña d are obtained. Bones: Bony structures are osteopenic. There is no acute fracture or dislocation visualized. Joint spaces: Mild joint space narrowing of the radiocarpal joint, severe joint space narrowing, scl erosis and bony spurring of the 1st CMC joint. Moderate joint space narrowing of the PIP and DIP join ts, without bony erosions. Hardware: None. Alignment: Normal. Soft tissues: Negative. IMPRESSION: 1. Osteopenia without evidence of acute left forearm or left hand fracture. If the patient has persis tent pain, repeat radiographs could be done in 7-10 days to assess for an occult fracture. 2. Mild degenerative joint disease of the left radiocarpal joint, severe degenerative joint disease o f the left 1st CMC joint, and moderate degenerative joint disease and PIP and DIP joints, suspicious for osteoarthritis. Report Dictated By: Victoria Rios MD at 03/06/2019 12:11 PM Report E-Signed By: Victoria Rios MD at 03/06/2019 12:15 PM WSN:[id number]
--- NOTE | 2019-03-06 12:22 | RADIOLOGY IMAGING REPORT ---
FACILITY: [facility] PATIENT NAME: Deidra More : 1935 MR: [id number] V: [id number] EXAM DATE: ORDERING PHYSICIAN: JACINTO ROSS TECHNOLOGIST: Location: [facility] Patient: Deidra More : 1935 Visit/Account:[id number] Date of Sevice: 03/06/2019 EXAMINATION: Left forearm radiographs 2 views Left hand radiographs 3 views HISTORY: Fall with laceration, bruising to thumb. COMPARISON: None. FINDINGS: AP and lateral views of the left forearm, and PA, lateral and oblique views of the left umaña d are obtained. Bones: Bony structures are osteopenic. There is no acute fracture or dislocation visualized. Joint spaces: Mild joint space narrowing of the radiocarpal joint, severe joint space narrowing, scl erosis and bony spurring of the 1st CMC joint. Moderate joint space narrowing of the PIP and DIP join ts, without bony erosions. Hardware: None. Alignment: Normal. Soft tissues: Negative. IMPRESSION: 1. Osteopenia without evidence of acute left forearm or left hand fracture. If the patient has persis tent pain, repeat radiographs could be done in 7-10 days to assess for an occult fracture. 2. Mild degenerative joint disease of the left radiocarpal joint, severe degenerative joint disease o f the left 1st CMC joint, and moderate degenerative joint disease and PIP and DIP joints, suspicious for osteoarthritis. Report Dictated By: Victoria Rios MD at 03/06/2019 12:11 PM Report E-Signed By: Victoria Rios MD at 03/06/2019 12:15 PM WSN:[id number]
== END 2019-03-06 14:06 | disposition home or self-care (01) ==
LOC: ER 11:06
DX: S51.812A Laceration without foreign body of left forearm, initial encounter (principal); S60.012A Contusion of left thumb without damage to nail, initial encounter; M50.323 Other cervical disc degeneration at C6-C7 level
CPT/HCPCS: 70450; 72125; 82040; 82247; 82310; 82374; 82435; 82565; 82947; 84075; 84132; 84155; 84295; 84450; 84460; 84520; 85025; 85610; 85730; 99284

== ENCOUNTER → 2019-03-06 | Outpatient (CLI) | payer MEDICARE, BC ==
[2016-12-27 12:33] VITALS: BMI 20.3
== END ==
LOC: AMB 14:05
PROVIDERS: ATTEND Nurse Practitioner
DX: R52 Pain, unspecified (principal)
CPT/HCPCS: A0425; A0428

== ENCOUNTER 2019-03-12 18:59 | Emergency (ER) | payer MEDICARE, BC ==
[2016-12-27 12:33] VITALS: Wt 70.9 kg
--- NOTE | 2019-03-12 19:02 | ER Report ---
History and Physical Time Seen By MD: 19:00 HPI/ROS CHIEF COMPLAINT: Falling, confusion HISTORY OF PRESENT ILLNESS: 83-year-old female brought from [facility] with altered mental status and 7 falls over the last week. Patient on arrival of EMS O2 tubing was twisted in kinked. She was not receiving her supplemental O2 at 2 L. Her pulse ox was 82% on room air. Nursing staff reports that she frequently takes off her O2, and wanders down the gonzalez. Patient was seen by primary care today and she was on Bactrim for urinary tract infection. They felt the Bactrim was contributing to her confusion and it was discontinued. Patient fell one week ago and sustained a large skin tear to her left arm which required suturing a large flap down. Patient on arrival voices no complaints. She is mentating well with normal O2 saturations on supplemental O2. There is intact. Dressing to the left forearm REVIEW OF SYSTEMS: Respiratory: No cough, no dyspnea. Cardiovascular: No chest pain, no palpitations. Gastrointestinal: No vomiting, no abdominal pain. Musculoskeletal: No back pain. Allergies: Coded Allergies: Penicillins (Unverified Allergy, Unknown, Swelling, 03/12/19) acetaminophen (Unverified Allergy, Unknown, Swelling, 03/12/19) codeine (Verified Allergy, Unknown, MENTAL STATUS CHANGES, 03/12/19) trospium (Verified Adverse Reaction, Intermediate, Nausea and decreased appetite, 03/12/19) Home Meds Active Scripts Simvastatin (SIMVASTATIN) 20 Mg Tablet, 20 MG PO HS, #30 TAB 0 Refills Prov:SEAN OROZCO MD 03/05/19 Solifenacin Succinate (VESICARE) 10 Mg Tablet, 10 MG PO DAILY, #30 TAB 11 Refills Prov:SEAN OROZCO MD 11/30/18 Fluoxetine Hcl (FLUOXETINE HCL) 20 Mg Tablet, 20 MG PO QDAY, #30 TAB 11 Refills Prov:SEAN OROZCO MD 11/16/18 Nitroglycerin (NITROGLYCERIN) 0.4 Mg Tab.subl, 0.4 MG SL Q5MIN, #20 TAB 0 Refills Prov:SEAN OROZCO MD 08/07/18 Amlodipine Besylate (AMLODIPINE BESYLATE) 5 Mg Tablet, 1 TAB PO QDAY, #90 TAB 1 Refill Prov:SEAN OROZCO MD 07/10/18 Metoprolol Succinate (METOPROLOL SUCCINATE) 100 Mg Tab.er.24h, 1 TAB PO QDAY, #90 TAB 3 Refills Prov:SEAN OROZCO MD 05/19/18 Levothyroxine Sodium (LEVOTHYROXINE SODIUM) 75 Mcg Tablet, 75 MCG PO QDAY, #90 TAB 3 Refills Prov:SEAN OROZCO MD 04/16/18 Carboxymethylcellulose Sodium (REFRESH TEARS) 15 Ml Drops, 2 GTT OP BID, #1 BOT 11 Refills Prov:SEAN OROZCO MD 03/18/17 Carboxymethylcellulose Sodium (REFRESH TEARS) 15 Ml Drops, 15 ML OP BID, #3 BOT 3 Refills Prov:SEAN OROZCO MD 03/17/17 Reported Medications Denosumab (PROLIA) 60 Mg/1 Ml Injs, 60 MG SUBQ Q6 months 06/22/18 Guaifenesin/Dextromethorphan (Robitussin Cough-Chest Dm Liq) 100 Mg-5 Mg/5 Ml Liquid, 5 ML PO 05/05/17 Magnesium Hydroxide (MILK OF MAGNESIA) 400 Mg/5 Ml Oral.susp, 15 ML PO PRN for prn, BOTTLE 05/05/17 Mag Hydrox/Aluminum Hyd/Simeth (Maalox Advanced Suspension) 200 Mg-200 Mg-20 Mg/5 Ml Oral.susp, 15 ML PO PRN for prn 05/05/17 Loperamide Hcl (ANTI-DIARRHEA) 2 Mg Tablet, 2 TAB PO PRN for prn 05/05/17 Calcium Carbonate/Mag Hydrox (ANTACID EXTRA STRNGTH TAB CHEW) 1 Each Tab.chew, 2 TAB PO PRN for prn, TAB.CHEW 05/05/17 Cholecalciferol (Vitamin D3) (VITAMIN D3) 1,000 Unit Capsule, 1 CAP PO DAILY, CAPSULE 05/05/17 Discontinued Scripts Sulfamethoxazole/Trimet 800-160 Mg Tab (BACTRIM DS TABLET) 1 Each Tablet, 1 TAB PO Q12H, #20 TAB 0 Refills Prov:SEAN OROZCO MD 03/02/19 Past Medical/Surgical History Patient has a past medical history of CVA, hypertension, COPD, wears 2 L of oxygen at all time. Patient has a surgical history of hysterectomy. Past Medical History Neurologic: Reports hx of: stroke (9-) Cardiovascular: Reports hx of: hyperlipidemia hypertension Respiratory: Reports hx of: COPD other respiratory history (interstitial lung disease) Genitourinary: Reports hx of: other history (urinary incontinence) Endocrine: Reports hx of: hyperparathyroidism Past Surgical History HEENT: Reports hx of: tonsillectomy (1941) other eye surgery (1989) Gastrointestinal: Reports hx of: appendectomy (1962) other GI surgery (Exploratory Gallbladder Surgery 1999) Gynecologic: Reports hx of: hysterectomy (1962) Reviewed Nurses Notes: Yes Old Medical Records Reviewed: Yes Hx Smoking: No Smoking Status: Never Smoker Exposure to Second Hand Smoke?: No Hx Substance Use Disorder: No Hx Alcohol Use: No Constitutional Vital Sign - Last 24 Hours 03/12/19 03/12/19 03/12/19 03/12/19 18:59 19:01 19:03 19:03 Temp 98.2 Pulse ??? 68 Resp 14 B/P (MAP) 116/76 (89) 115/78 (90) 115/78 Pulse Ox 82 O2 Delivery Nasal Cannula 03/12/19 03/12/19 03/12/19 03/12/19 19:14 19:24 19:29 19:30 Pulse 63 ??? B/P (MAP) ???/??? ([id number]) Pulse Ox 91 O2 Flow Rate 15.0 03/12/19 03/12/19 03/12/19 03/12/19 19:44 19:48 19:59 20:13 Pulse 66 ??? B/P (MAP) 127/73 (91) 133/86 (102) Pulse Ox 99 03/12/19 03/12/19 03/12/19 03/12/19 20:14 20:16 20:16 20:20 Pulse 64 64 65 Resp 18 18 Pulse Ox 97 92 O2 Delivery Nasal Cannula O2 Flow Rate 3.0 03/12/19 03/12/19 03/12/19 20:29 20:30 20:44 Pulse 75 ??? B/P (MAP) 136/84 (101) Pulse Ox 82 83 Physical Exam General Appearance: The patient is alert, has no immediate need for airway protection and no current signs of toxicity. Palpation of the head and neck reveal no tenderness or trauma. Patient is alert and oriented, responding appropriately to questions. She does show signs of mild dementia HEENT: Pupils equal and round no injection. Oropharynx without redness or exudate, mucous. Membranes are moist Respiratory: Chest is non tender, lungs are clear to auscultation. No chest wall tenderness Cardiac: regular rate and rhythm Gastrointestinal: Abdomen is soft and non tender, no masses, bowel sounds normal. Musculoskeletal: Neck: Neck is supple and non tender. Extremities have full range of motion and are non tender. No evidence of trauma other than a dressing on the left forearm Skin: No rashes or lesions. DIFFERENTIAL DIAGNOSIS: After history and physical exam differential diagnosis was considered for fall in the elderly including but not limited to intracranial injury, long bone and pelvic bone fracture, spinal injury, and intrathoracic injury. Additionally altered mental status including but not limited to hypoglycemia, infectious process, electrolyte abnormality, head injury and intoxicants. Medical Decision Making Data Points Result Diagram: 03/12/19190703/12/191907 Laboratory Hematology Test 03/12/19 19:08 03/12/19 20:06 Red Blood Count 4.39 M/uL (4.17-5.56) Mean Corpuscular Volume 88.5 fL (80.0-96.0) Mean Corpuscular Hemoglobin 31.1 pg (26.0-33.0) Mean Corpuscular Hemoglobin Concent 35.1 g/dL (32.0-36.0) Red Cell Distribution Width 14.6 % (11.5-14.5) Mean Platelet Volume 8.8 fL (7.2-11.1) Neutrophils (%) (Auto) 76.3 % (39.4-72.5) Lymphocytes (%) (Auto) 15.1 % (17.6-49.6) Monocytes (%) (Auto) 7.0 % (4.1-12.4) Eosinophils (%) (Auto) 1.0 % (0.4-6.7) Basophils (%) (Auto) 0.6 % (0.3-1.4) Nucleated RBC Relative Count (auto) 0.1 /100WBC Neutrophils # (Auto) 7.0 K/uL (2.0-7.4) Lymphocytes # (Auto) 1.4 K/uL (1.3-3.6) Monocytes # (Auto) 0.6 K/uL (0.3-1.0) Eosinophils # (Auto) 0.1 K/uL (0.0-0.5) Basophils # (Auto) 0.1 K/uL (0.0-0.1) Nucleated RBC Absolute Count (auto) 0.01 K/uL Sodium Level 136 mmol/L (137-145) Potassium Level 4.4 mmol/L (3.5-5.0) Chloride Level 106 mmol/L (98-107) Carbon Dioxide Level 16 mmol/L (22-31) Blood Urea Nitrogen 21 mg/dl (7-18) Creatinine 1.10 mg/dl (0.52-1.04) Glomerular Filtration Rate Calc 47.3 Random Glucose 115 mg/dl (75-110) Calcium Level 9.9 mg/dl (8.4-10.2) Total Bilirubin 0.6 mg/dl (0.2-1.3) Aspartate Amino Transf (AST/SGOT) 29 U/L (0-35) Alanine Aminotransferase (ALT/SGPT) 33 U/L (0-56) Alkaline Phosphatase 56 U/L (0-126) Troponin I < 0.012 ng/ml B-Type Natriuretic Peptide 90 pg/ml (0-100) Total Protein 6.6 g/dl (6.3-8.2) Albumin 4.0 g/dl (3.5-5.0) Serum Alcohol < 10 mg/dl Urine Color Yellow Urine Clarity Slightly-cloudy Urine pH 6.0 pH (4.8-9.5) Urine Specific [place] 1.012 Urine Protein Negative mg/dL (NEGATIVE) Urine Glucose (UA) Negative mg/dL (NEGATIVE) Urine Ketones Trace mg/dL (NEGATIVE) Urine Blood Negative (NEGATIVE) Urine Nitrite Negative (NEGATIVE) Urine Bilirubin Negative (NEGATIVE) Urine Urobilinogen Negative mg/dL (0.2-1.9) Urine Leukocyte Esterase Small (NEGATIVE) Urine RBC 2 /HPF (0-2/HPF) Urine WBC 11 /HPF (0-5/HPF) Urine Squamous Epithelial Cells Many /LPF (</=FEW) Urine Transitional Epithelial Cells Moderate /LPF (NONE-FEW) Urine Bacteria Negative /HPF (NONE-FEW) Urine Mucus Few /HPF (NONE-FEW) Chemistry Test 03/12/19 19:08 03/12/19 20:06 White Blood Count 9.2 k/uL (4.5-11.0) Red Blood Count 4.39 M/uL (4.17-5.56) Hemoglobin 13.6 g/dL (12.0-16.0) Hematocrit 38.8 % (34.0-47.0) Mean Corpuscular Volume 88.5 fL (80.0-96.0) Mean Corpuscular Hemoglobin 31.1 pg (26.0-33.0) Mean Corpuscular Hemoglobin Concent 35.1 g/dL (32.0-36.0) Red Cell Distribution Width 14.6 % (11.5-14.5) Platelet Count 233 K/uL (150-450) Mean Platelet Volume 8.8 fL (7.2-11.1) Neutrophils (%) (Auto) 76.3 % (39.4-72.5) Lymphocytes (%) (Auto) 15.1 % (17.6-49.6) Monocytes (%) (Auto) 7.0 % (4.1-12.4) Eosinophils (%) (Auto) 1.0 % (0.4-6.7) Basophils (%) (Auto) 0.6 % (0.3-1.4) Nucleated RBC Relative Count (auto) 0.1 /100WBC Neutrophils # (Auto) 7.0 K/uL (2.0-7.4) Lymphocytes # (Auto) 1.4 K/uL (1.3-3.6) Monocytes # (Auto) 0.6 K/uL (0.3-1.0) Eosinophils # (Auto) 0.1 K/uL (0.0-0.5) Basophils # (Auto) 0.1 K/uL (0.0-0.1) Nucleated RBC Absolute Count (auto) 0.01 K/uL Glomerular Filtration Rate Calc 47.3 Calcium Level 9.9 mg/dl (8.4-10.2) Total Bilirubin 0.6 mg/dl (0.2-1.3) Aspartate Amino Transf (AST/SGOT) 29 U/L (0-35) Alanine Aminotransferase (ALT/SGPT) 33 U/L (0-56) Alkaline Phosphatase 56 U/L (0-126) Troponin I < 0.012 ng/ml B-Type Natriuretic Peptide 90 pg/ml (0-100) Total Protein 6.6 g/dl (6.3-8.2) Albumin 4.0 g/dl (3.5-5.0) Serum Alcohol < 10 mg/dl Urine Color Yellow Urine Clarity Slightly-cloudy Urine pH 6.0 pH (4.8-9.5) Urine Specific [place] 1.012 Urine Protein Negative mg/dL (NEGATIVE) Urine Glucose (UA) Negative mg/dL (NEGATIVE) Urine Ketones Trace mg/dL (NEGATIVE) Urine Blood Negative (NEGATIVE) Urine Nitrite Negative (NEGATIVE) Urine Bilirubin Negative (NEGATIVE) Urine Urobilinogen Negative mg/dL (0.2-1.9) Urine Leukocyte Esterase Small (NEGATIVE) Urine RBC 2 /HPF (0-2/HPF) Urine WBC 11 /HPF (0-5/HPF) Urine Squamous Epithelial Cells Many /LPF (</=FEW) Urine Transitional Epithelial Cells Moderate /LPF (NONE-FEW) Urine Bacteria Negative /HPF (NONE-FEW) Urine Mucus Few /HPF (NONE-FEW) Toxicology Test 03/12/19 19:08 Serum Alcohol < 10 mg/dl Urinalysis Test 03/12/19 20:06 Urine Color Yellow Urine Clarity Slightly-cloudy Urine pH 6.0 pH (4.8-9.5) Urine Specific [place] 1.012 Urine Protein Negative mg/dL (NEGATIVE) Urine Glucose (UA) Negative mg/dL (NEGATIVE) Urine Ketones Trace mg/dL (NEGATIVE) Urine Blood Negative (NEGATIVE) Urine Nitrite Negative (NEGATIVE) Urine Bilirubin Negative (NEGATIVE) Urine Urobilinogen Negative mg/dL (0.2-1.9) Urine Leukocyte Esterase Small (NEGATIVE) Urine RBC 2 /HPF (0-2/HPF) Urine WBC 11 /HPF (0-5/HPF) Urine Squamous Epithelial Cells Many /LPF (</=FEW) Urine Transitional Epithelial Cells Moderate /LPF (NONE-FEW) Urine Bacteria Negative /HPF (NONE-FEW) Urine Mucus Few /HPF (NONE-FEW) Microbiology Microbiology Date/Time Source Procedure Growth Status 03/12/19 20:06 Clean Catch Midstream Ur Urine Culture - Final Complete EKG/Imaging EKG Interpretation 12 lead EK Rhythm: normal sinus rhythm [place]: normal QRS: normal ST segments: Nonspecific T wave abnormality, comparison to previous EKG dated 06/01/18, no significant change Imaging X-ray: Single view portable chest x-ray was obtained. I viewed the images myself on the PACS system. My interpretation of the images is: No infiltrate, no effusion,, underinflation normal mediastinum, borderline cardiomegaly, com parison to previous chest film 06/01/18, no significant change. The radiologist interpretation had no clinically significant variation from this interpretation. Results: CT scan of the head without contrast was obtained. The results of the study are no acute findings. The study was read by the radiologist. I viewed the images myself on the PACS system. ED Course/Re-evaluation Clinical Indication for ER IV: Hydration, IV Access ED Course Patient was admitted to an examination room. H&P was done. The dental diagnoses was considered. Patient with continued falls. She has chronic dizziness. Diagnostic evaluation was unremarkable. Head CT was negative. Patient's left arm where she sustained a large skin tear was evaluated. She had sutures placed approximately a week ago. It is some dehiscence of one aspect of the wound. Wound was redressed with Steri-Strips and the sutures should removed. Removed in 1 week from the remainder of the wound. Patient was returned to the care center where she was previously at. To be taken by her daughter. Decision to Disposition Date: Mar 12, 2019 Decision to Disposition Time: 20:03 Depart Departure Latest Vital Signs Vital Signs Date Time Temp Pulse Resp B/P (MAP) Pulse Ox O2 Delivery O2 Flow Rate FiO2 03/12/19 20:44 ??? 83 03/12/19 20:30 136/84 (101) 03/12/19 20:20 18 03/12/19 20:16 Nasal Cannula 3.0 03/12/19 19:03 98.2 Impression: Primary Impression: Altered mental status Additional Impressions: Hypoxia Laceration of left arm with complication Condition: Improved Disposition: HOME OR SELF-CARE Referrals: SEAN OROZCO MD (PCP) Patient Instructions: Altered Mental Status (ED), Fall Prevention for Older Adults (GEN) Additional Instructions: Follow-up with primary care late next week for suture removal from left arm wound Continue daily wound care. Avoid applying tape to her skin. Use Dionicio wrap, coban or cleaning three-inch bandage to hold the dressing on Problem Qualifiers Primary Impression: Altered mental status Altered mental status type: disorientation Qualified Codes: R41.0 - Disorientation, unspecified Additional Impressions: Laceration of left arm with complication Encounter type: subsequent encounter Qualified Codes: S41.112D - Laceration without foreign body of left upper arm, subsequent encounter ROXANA VANCE DO Mar 12, 2019 19:02
[2019-03-12] MEDS ORDERED: NS(*) 0.9% 1000 ML BAG 1,000 ML IV ONE (19:05)
[2019-03-12 19:23] LABS: PLATELET COUNT, AUTOMATED 233 K/uL (150-450)
--- NOTE | 2019-03-12 19:36 | EKG ---
FACILITY: [facility] - [place] PATIENT NAME: ANJELICA DELUNA : [id number] MR: [id number] V: [id number] EXAM DATE: ORDERING PHYSICIAN: ROXANA VANCE TECHNOLOGIST: BLADIMIR Posey Reason : AMS FALL Blood Pressure : / mmHG Vent. Rate : 064 BPM Atrial Rate : 064 BPM P-R Int : 198 ms QRS Dur : 092 ms QT Int : 450 ms P-R-T Axes : 065 -02 087 degrees QTc Int : 464 ms Sinus rhythm Borderline left axis Nonspecific T wave abnormality Abnormal ECG Confirmed by DOC HARO ([id number]) on 03/12/2019 8:51:18 PM Referred By: Confirmed By:DOC HARO
[2019-03-12] MEDS ORDERED: methylPREDNIS SUCC 125 MG/2ML IVP ONE (20:00)
[2019-03-12] MEDS ORDERED: ALBUTEROL/IPRATROPIUM 3 ML NEB NEB ONE (20:00)
--- NOTE | 2019-03-12 20:01 | RADIOLOGY IMAGING REPORT ---
FACILITY: [facility] - [place] PATIENT NAME: Deidra More : 1935 MR: [id number] V: [id number] EXAM DATE: ORDERING PHYSICIAN: ROXANA VANCE TECHNOLOGIST: [place] [facility] [place]idra [place] : 1935 Visit/Account:[id number] Date of Sevice: 03/12/2019 CHEST SINGLE AP History: AMS falling FINDINGS: Comparison studies: 06/01/2018 Tubes and Lines: None. Lungs and pleura: Well aerated. No evidence of focal consolidation or pleural effusions. Mediastinum: normal. Cardiac silhouette: normal . Osseous structures: Evidence of old right eighth rib fracture. No acute fractures identified. IMPRESSION: No acute cardiopulmonary pathology identified. Report Dictated By: Mychal Lopez MD at 03/12/2019 7:53 PM Report E-Signed By: Mychal Lopez MD at 03/12/2019 7:55 PM WSN:[id number]
--- NOTE | 2019-03-12 20:03 | RADIOLOGY IMAGING REPORT ---
FACILITY: [facility] - [place] PATIENT NAME: Deidra More : 1935 MR: [id number] V: [id number] EXAM DATE: ORDERING PHYSICIAN: ROXANA VANCE TECHNOLOGIST: Location: [facility] - [place] Patient: Deidra More : 1935 Visit/Account:[id number] Date of Sevice: 03/12/2019 CT Head without contrast Indication: Fall. Altered mental status. Comparison: 03/06/2019. Technique: Axial CT images were obtained through the brain from the skull base to the vertex without administration of IV contrast. Reformatted coronal and sagittal images were also obtained. One of the following dose optimization techniques was utilized in the performance of this exam: autom ated exposure control; adjustment of the mA and/or kV according to the patient's size; or use of an i terative reconstruction technique. Specific details can be referenced in the facility's radiology CT exam operational policy. Findings: No evidence of mass, mass effect, or midline shift. No acute intracranial hemorrhage or acute territorial infarction. No extra-axial fluid collection or hydrocephalus. Age-related cerebral atrophy. Periventricular white matter ischemic changes consistent small vessel disease. Woo/white matter differentiation appears n ormal. Bony structures show no fractures or lesions. The visualized paranasal sinuses and mastoid air cells are clear. IMPRESSION: 1. Continued senescent changes without acute abnormality. Report Dictated By: Diogenes Brunner at 03/12/2019 7:54 PM Report E-Signed By: Diogenes Brunner at 03/12/2019 7:58 PM WSN:[id number]
[2019-03-12 20:30] VITALS: BP 136/84
== END 2019-03-12 21:07 | disposition home or self-care (01) ==
LOC: ER 19:05
DX: R41.82 Altered mental status, unspecified (principal); R09.02 Hypoxemia; S41.112D Laceration without foreign body of left upper arm, subsequent encounter; E21.3 Hyperparathyroidism, unspecified; E78.5 Hyperlipidemia, unspecified; I10 Essential (primary) hypertension; J44.9 Chronic obstructive pulmonary disease, unspecified; W19.XXXD Unspecified fall, subsequent encounter; Z79.899 Other long term (current) drug therapy; Z86.73 Personal history of transient ischemic attack (TIA), and cerebral infarction without residual deficits; Z91.81 History of falling; Z99.81 Dependence on supplemental oxygen
CPT/HCPCS: 70450; 71045; 81001; 83880; 84484; 85025; 87088; 93005; 94640; 96374; 99285; G0480; J2930; J7030; J7620; 80320; 82040; 82247; 82310; 82374; 82435; 82565; 82947; 84075; 84132; 84155; 84295; 84450; 84460; 84520

== ENCOUNTER → 2019-03-12 | Outpatient (CLI) | payer MEDICARE, BC ==
[2016-12-27 12:33] VITALS: BMI 20.3
[2019-03-12 11:40] LABS: PLATELET COUNT, AUTOMATED 251 K/uL (150-450)
== END ==
LOC: LAB 11:16
PROVIDERS: ATTEND Nurse Practitioner Family
DX: R26.89 Other abnormalities of gait and mobility (principal)
CPT/HCPCS: 36415; 82310; 82374; 82435; 82565; 82947; 84132; 84295; 84520; 85025

== ENCOUNTER → 2019-03-12 | Outpatient (CLI) | payer MEDICARE, BC ==
[2016-12-27 12:33] VITALS: BMI 20.3
== END ==
LOC: AMB 18:39
PROVIDERS: ATTEND Nurse Practitioner
DX: R40.4 Transient alteration of awareness (principal); R09.02 Hypoxemia; R06.00 Dyspnea, unspecified; R41.0 Disorientation, unspecified
CPT/HCPCS: A0425; A0429

== ENCOUNTER 2019-03-16 11:16 | Emergency (ER) | payer MEDICARE, BC ==
[2016-12-27 12:33] VITALS: Wt 65.3 kg
--- NOTE | 2019-03-16 11:26 | ER Report ---
History and Physical Time Seen By MD: 11:23 HPI/ROS CHIEF COMPLAINT: Shortness of breath, abdominal pain HISTORY OF PRESENT ILLNESS: 83-year-old female patient presents to emergency room with complaint of shortness of breath and abdominal pain. Patient states she feels fine at this time, although when asked further she does complain of right upper quadrant abdominal pain. She states this is been going on since today. Her daughter states this has been going on since yesterday. She states she was called by the patient informed of this last night. Patient denies any nausea, vomiting or diarrhea. Patient states she's not had any fevers or chills. Patient states that she's not been able to eat well. She apparently has had half of a small sandwich over the last couple days. Patient hasn't been eating any candy or cookies. Daughter states that that is a clear indication that she's not feeling well. Patient has been having frequent falls as well as dizziness. This been going on for months. REVIEW OF SYSTEMS: Respiratory: As noted above. Cardiovascular: No chest pain, no palpitations. Gastrointestinal: As noted above Musculoskeletal: No back pain. Allergies: Coded Allergies: Penicillins (Unverified Allergy, Unknown, Swelling, 03/12/19) acetaminophen (Unverified Allergy, Unknown, Swelling, 03/12/19) codeine (Verified Allergy, Unknown, MENTAL STATUS CHANGES, 03/12/19) trospium (Verified Adverse Reaction, Intermediate, Nausea and decreased appetite, 03/12/19) Home Meds Active Scripts Cinacalcet Hcl (SENSIPAR) 30 Mg Tablet, 30 MG PO Q3D, #10 TAB Prov:JACINTO ROSS 03/16/19 Simvastatin (SIMVASTATIN) 20 Mg Tablet, 20 MG PO HS, #30 TAB 0 Refills Prov:SEAN DEL CID MD 03/05/19 Solifenacin Succinate (VESICARE) 10 Mg Tablet, 10 MG PO DAILY, #30 TAB 11 Refills Prov:SEAN DEL CID MD 11/30/18 Fluoxetine Hcl (FLUOXETINE HCL) 20 Mg Tablet, 20 MG PO QDAY, #30 TAB 11 Refills Prov:SEAN DEL CID MD 11/16/18 Nitroglycerin (NITROGLYCERIN) 0.4 Mg Tab.subl, 0.4 MG SL Q5MIN, #20 TAB 0 Refills Prov:SEAN DEL CID MD 08/07/18 Amlodipine Besylate (AMLODIPINE BESYLATE) 5 Mg Tablet, 1 TAB PO QDAY, #90 TAB 1 Refill Prov:SEAN DEL CID MD 07/10/18 Metoprolol Succinate (METOPROLOL SUCCINATE) 100 Mg Tab.er.24h, 1 TAB PO QDAY, #90 TAB 3 Refills Prov:SEAN DEL CID MD 05/19/18 Levothyroxine Sodium (LEVOTHYROXINE SODIUM) 75 Mcg Tablet, 75 MCG PO QDAY, #90 TAB 3 Refills Prov:SEAN DEL CID MD 04/16/18 Carboxymethylcellulose Sodium (REFRESH TEARS) 15 Ml Drops, 2 GTT OP BID, #1 BOT 11 Refills Prov:SEAN DEL CID MD 03/18/17 Carboxymethylcellulose Sodium (REFRESH TEARS) 15 Ml Drops, 15 ML OP BID, #3 BOT 3 Refills Prov:SEAN DEL CID MD 03/17/17 Reported Medications Denosumab (PROLIA) 60 Mg/1 Ml Injs, 60 MG SUBQ Q6 months 06/22/18 Guaifenesin/Dextromethorphan (Robitussin Cough-Chest Dm Liq) 100 Mg-5 Mg/5 Ml Liquid, 5 ML PO 05/05/17 Magnesium Hydroxide (MILK OF MAGNESIA) 400 Mg/5 Ml Oral.susp, 15 ML PO PRN for prn, BOTTLE 05/05/17 Mag Hydrox/Aluminum Hyd/Simeth (Maalox Advanced Suspension) 200 Mg-200 Mg-20 Mg/5 Ml Oral.susp, 15 ML PO PRN for prn 05/05/17 Loperamide Hcl (ANTI-DIARRHEA) 2 Mg Tablet, 2 TAB PO PRN for prn 05/05/17 Calcium Carbonate/Mag Hydrox (ANTACID EXTRA STRNGTH TAB CHEW) 1 Each Tab.chew, 2 TAB PO PRN for prn, TAB.CHEW 05/05/17 Cholecalciferol (Vitamin D3) (VITAMIN D3) 1,000 Unit Capsule, 1 CAP PO DAILY, CAPSULE 05/05/17 Discontinued Scripts Sulfamethoxazole/Trimet 800-160 Mg Tab (BACTRIM DS TABLET) 1 Each Tablet, 1 TAB PO Q12H, #20 TAB 0 Refills Prov:SEAN DEL CID MD 03/02/19 Past Medical/Surgical History Patient has a past medical history of CVA, hypertension, COPD, wears 2 L of oxygen at all time. Patient has a surgical history of hysterectomy. Reviewed Nurses Notes: Yes Hx Smoking: No Smoking Status: Never Smoker Exposure to Second Hand Smoke?: No Hx Substance Use Disorder: No Hx Alcohol Use: No Constitutional Vital Sign - Last 24 Hours 03/16/19 03/16/19 03/16/19 03/16/19 11:20 11:25 11:25 11:30 Temp 98.0 Pulse 64 Resp 24 B/P (MAP) 117/87 (97) 117/87 116/87 (97) Pulse Ox 94 O2 Delivery Oxy Mask O2 Flow Rate 6.0 03/16/19 03/16/19 03/16/19 03/16/19 11:46 11:51 11:59 12:00 Pulse 67 65 Resp 23 20 B/P (MAP) 123/86 (98) Pulse Ox 93 91 O2 Flow Rate 6.0 03/16/19 03/16/19 03/16/19 03/16/19 12:30 12:51 12:56 12:57 Pulse 51 52 Resp 14 10 B/P (MAP) 122/82 (95) Pulse Ox 100 93 O2 Flow Rate 2.0 03/16/19 03/16/19 03/16/19 03/16/19 13:00 13:26 13:30 14:22 Temp 98.0 Pulse 52 62 Resp 23 18 B/P (MAP) 125/88 (100) 134/79 (97) 118/78 (91) Pulse Ox 90 95 O2 Delivery Nasal Cannula O2 Flow Rate 2 Physical Exam General Appearance: The patient is alert, has no immediate need for airway protection and no current signs of toxicity. Respiratory: Chest is non tender, lungs are clear to auscultation. Cardiac: regular rate and rhythm Gastrointestinal: Abdomen is soft and non tender, no masses, bowel sounds normal. Musculoskeletal: Neck: Neck is supple and non tender. Extremities have full range of motion and are non tender. Skin: No rashes or lesions. DIFFERENTIAL DIAGNOSIS: After history and physical exam differential diagnosis was considered for abdominal pain including but not limited to appendicitis, cholecystitis, gastritis and urinary tract infection. Medical Decision Making Data Points Result Diagram: 03/16/19 1140 03/16/19 1140 Laboratory Hematology Test 03/16/19 11:40 03/16/19 11:53 Red Blood Count 4.79 M/uL (4.17-5.56) Mean Corpuscular Volume 90.2 fL (80.0-96.0) Mean Corpuscular Hemoglobin 30.6 pg (26.0-33.0) Mean Corpuscular Hemoglobin Concent 33.9 g/dL (32.0-36.0) Red Cell Distribution Width 14.3 % (11.5-14.5) Mean Platelet Volume 8.4 fL (7.2-11.1) Neutrophils (%) (Auto) 69.3 % (39.4-72.5) Lymphocytes (%) (Auto) 20.9 % (17.6-49.6) Monocytes (%) (Auto) 7.4 % (4.1-12.4) Eosinophils (%) (Auto) 1.7 % (0.4-6.7) Basophils (%) (Auto) 0.7 % (0.3-1.4) Nucleated RBC Relative Count (auto) 0.1 /100WBC Neutrophils # (Auto) 4.7 K/uL (2.0-7.4) Lymphocytes # (Auto) 1.4 K/uL (1.3-3.6) Monocytes # (Auto) 0.5 K/uL (0.3-1.0) Eosinophils # (Auto) 0.1 K/uL (0.0-0.5) Basophils # (Auto) 0.0 K/uL (0.0-0.1) Nucleated RBC Absolute Count (auto) 0.01 K/uL Sodium Level 139 mmol/L (137-145) Potassium Level 4.4 mmol/L (3.5-5.0) Chloride Level 105 mmol/L (98-107) Carbon Dioxide Level 25 mmol/L (22-31) Blood Urea Nitrogen 13 mg/dl (7-18) Creatinine 0.90 mg/dl (0.52-1.04) Glomerular Filtration Rate Calc 59.7 Random Glucose 120 mg/dl (75-110) Lactate 1.3 mmol/L (0.7-2.1) Calcium Level 10.4 mg/dl (8.4-10.2) Total Bilirubin 0.7 mg/dl (0.2-1.3) Aspartate Amino Transf (AST/SGOT) 22 U/L (0-35) Alanine Aminotransferase (ALT/SGPT) 34 U/L (0-56) Alkaline Phosphatase 55 U/L (0-126) Troponin I < 0.012 ng/ml B-Type Natriuretic Peptide 95 pg/ml (0-100) Total Protein 6.5 g/dl (6.3-8.2) Albumin 3.8 g/dl (3.5-5.0) Urine Color Yellow Urine Clarity Clear Urine pH 5.0 pH (4.8-9.5) Urine Specific [place] 1.013 Urine Protein Negative mg/dL (NEGATIVE) Urine Glucose (UA) Negative mg/dL (NEGATIVE) Urine Ketones Negative mg/dL (NEGATIVE) Urine Blood Moderate (NEGATIVE) Urine Nitrite Negative (NEGATIVE) Urine Bilirubin Negative (NEGATIVE) Urine Urobilinogen Negative mg/dL (0.2-1.9) Urine Leukocyte Esterase Trace (NEGATIVE) Urine RBC 9 /HPF (0-2/HPF) Urine WBC 15 /HPF (0-5/HPF) Urine Squamous Epithelial Cells Moderate /LPF (NONE-FEW) Urine Transitional Epithelial Cells Few /LPF (NONE-FEW) Urine Bacteria Negative /HPF (NONE-FEW) Urine Hyaline Casts Few /LPF (NONE-FEW) Urine Mucus Few /HPF (NONE-FEW) Chemistry Test 03/16/19 11:40 03/16/19 11:53 White Blood Count 6.7 k/uL (4.5-11.0) Red Blood Count 4.79 M/uL (4.17-5.56) Hemoglobin 14.7 g/dL (12.0-16.0) Hematocrit 43.3 % (34.0-47.0) Mean Corpuscular Volume 90.2 fL (80.0-96.0) Mean Corpuscular Hemoglobin 30.6 pg (26.0-33.0) Mean Corpuscular Hemoglobin Concent 33.9 g/dL (32.0-36.0) Red Cell Distribution Width 14.3 % (11.5-14.5) Platelet Count 265 K/uL (150-450) Mean Platelet Volume 8.4 fL (7.2-11.1) Neutrophils (%) (Auto) 69.3 % (39.4-72.5) Lymphocytes (%) (Auto) 20.9 % (17.6-49.6) Monocytes (%) (Auto) 7.4 % (4.1-12.4) Eosinophils (%) (Auto) 1.7 % (0.4-6.7) Basophils (%) (Auto) 0.7 % (0.3-1.4) Nucleated RBC Relative Count (auto) 0.1 /100WBC Neutrophils # (Auto) 4.7 K/uL (2.0-7.4) Lymphocytes # (Auto) 1.4 K/uL (1.3-3.6) Monocytes # (Auto) 0.5 K/uL (0.3-1.0) Eosinophils # (Auto) 0.1 K/uL (0.0-0.5) Basophils # (Auto) 0.0 K/uL (0.0-0.1) Nucleated RBC Absolute Count (auto) 0.01 K/uL Glomerular Filtration Rate Calc 59.7 Lactate 1.3 mmol/L (0.7-2.1) Calcium Level 10.4 mg/dl (8.4-10.2) Total Bilirubin 0.7 mg/dl (0.2-1.3) Aspartate Amino Transf (AST/SGOT) 22 U/L (0-35) Alanine Aminotransferase (ALT/SGPT) 34 U/L (0-56) Alkaline Phosphatase 55 U/L (0-126) Troponin I < 0.012 ng/ml B-Type Natriuretic Peptide 95 pg/ml (0-100) Total Protein 6.5 g/dl (6.3-8.2) Albumin 3.8 g/dl (3.5-5.0) Urine Color Yellow Urine Clarity Clear Urine pH 5.0 pH (4.8-9.5) Urine Specific [place] 1.013 Urine Protein Negative mg/dL (NEGATIVE) Urine Glucose (UA) Negative mg/dL (NEGATIVE) Urine Ketones Negative mg/dL (NEGATIVE) Urine Blood Moderate (NEGATIVE) Urine Nitrite Negative (NEGATIVE) Urine Bilirubin Negative (NEGATIVE) Urine Urobilinogen Negative mg/dL (0.2-1.9) Urine Leukocyte Esterase Trace (NEGATIVE) Urine RBC 9 /HPF (0-2/HPF) Urine WBC 15 /HPF (0-5/HPF) Urine Squamous Epithelial Cells Moderate /LPF (NONE-FEW) Urine Transitional Epithelial Cells Few /LPF (NONE-FEW) Urine Bacteria Negative /HPF (NONE-FEW) Urine Hyaline Casts Few /LPF (NONE-FEW) Urine Mucus Few /HPF (NONE-FEW) Urinalysis Test 03/16/19 11:53 Urine Color Yellow Urine Clarity Clear Urine pH 5.0 pH (4.8-9.5) Urine Specific [place] 1.013 Urine Protein Negative mg/dL (NEGATIVE) Urine Glucose (UA) Negative mg/dL (NEGATIVE) Urine Ketones Negative mg/dL (NEGATIVE) Urine Blood Moderate (NEGATIVE) Urine Nitrite Negative (NEGATIVE) Urine Bilirubin Negative (NEGATIVE) Urine Urobilinogen Negative mg/dL (0.2-1.9) Urine Leukocyte Esterase Trace (NEGATIVE) Urine RBC 9 /HPF (0-2/HPF) Urine WBC 15 /HPF (0-5/HPF) Urine Squamous Epithelial Cells Moderate /LPF (NONE-FEW) Urine Transitional Epithelial Cells Few /LPF (NONE-FEW) Urine Bacteria Negative /HPF (NONE-FEW) Urine Hyaline Casts Few /LPF (NONE-FEW) Urine Mucus Few /HPF (NONE-FEW) EKG/Imaging EKG Interpretation 12 lead EKG: Rhythm: normal sinus rhythm Rake: normal QRS: normal ST segments: Nonspecific T-wave abnormality Imaging CT ABDOMEN PELVIS W/ CON HISTORY: Respiratory distress, chest pain, history of blood clots, fall TECHNIQUE: CT abdomen and pelvis with intravenous contrast. Contiguous axial images of the abdomen and pelvis was performed from the lung bases to the symphysis pubis. One of the following dose optimization techniques was utilized in the perf ormance of this exam: Automated exposure control; adjustment of the mA and/or kV according to the patient's size; or use of an iterative reconstruction technique. Specific details can be referenced in the facility's radiology CT exam operational policy. CONTRAST: 75 cc of Isovue-370 COMPARISON: None. FINDINGS: Visualized lung bases: Mild interstitial prominence is noted. Hepatobiliary: Small benign cyst segment 2 of the liver measures 4 mm. Gallbladder is absent. Bile ducts are decompressed. Hepatic veins and portal veins are patent. Spleen: Negative. Adrenals: 11 mm left adrenal nodule is noted. Kidneys/: Benign bilateral renal cortical cysts are noted. Nonobstructing stones are noted in both kidney. Largest stone in the right kidney is in lower pole measures 5 mm. 4 mm nonobstructing stone is noted lower pole left kidney. No obstructing ureteral stones. Pancreas: Negative. GI: There is colonic diverticulosis. No bowel obstruction or focal inflammation . Vessels/spaces/nodes: Patient has an IVC filter in place which extends beyond the wall of the IVC. 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 Atherosclerotic calcification is also noted. Bones/soft tissues: L1 compression fracture involves 20% of the vertebral body height. Degenerative changes are noted. There is 3 mm of anterolisthesis of L3 with respect L4. Displaced right posterior 11th rib fracture is potentially acute. IMPRESSION: 1. Right posterior 11th rib fracture is potentially acute. 2. L1 compression fracture involves 20% of the vertebral body height, of uncertain chronicity. 3. IVC filter is noted. 4. 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 5. Numerous other chronic findings are detailed above. Report Dictated By: Diogenes Haney MD at 03/16/2019 12:59 PM Report E-Signed By: Diogenes Haney MD at 03/16/2019 1:[address] CTA CHEST W & W/O CON EXAMINATION: CTA of the chest with IV contrast History : Shortness of breath, respiratory distress, chest pain, fall TECHNIQUE: Pulmonary embolus protocol - Thin-slice axial imaging of the chest was performed during maximal pulmonary arterial opacification with intravenous nonionic iodinated contrast. 3D coronal slab MIPs and 2D reconstructions in the coronal and sagittal planes were performed to aid in pulmonary embolus detection. [facility] images have been stored on PACS. One of the following dose optimization techniques was utilized in the performance of this exam: Automated exposure control; adjustment of the mA and/or kV according to the patient's size; or use of an iterative reconstruction technique. Specific details can be referenced in the facility's radiology CT exam operational policy. Contrast: 75 cc of Isovue-370 COMPARISON STUDIES: 12/28/2016, 07/11/2016. FINDINGS: Please note that this exam is optimized for assessment of the pulmonary arteries and is not intended as a diagnostic study of the thoracic aorta, coronary arteries or venous structures. Angiographic Findings: Pulmonary arteries: There are no filling defects in the main, right, left, lobar, segmental or visualized sub-segmental branches of the pulmonary arterial system Other vasculature: There is calcification the coronary vessels. Heart is enlarged.. Additional non-angiographic findings: Lungs / Pleura: Stable 9 x 8 mm left for lobe nodules unchanged dating back to 2016. Mediastinum / Sharon: negative. Heart / Pericardium: Enlarged. Lymph node assessment: negative Musculoskeletal / Body wall: Displaced right posterior 11th rib fracture is potentially acute. Sclerotic focus in T6 vertebral body is stable. Mild T4 compression fracture stable. Mild compression fracture of superior endplate of L1 is of uncertain chronicity. Upper abdomen: Will be described separately. Nonobstructing stones are noted in the right kidney the largest measuring 6 mm lower pole right kidney. Renal cortical cysts are noted. Patient has an IVC filter in place IMPRESSION: 1. No evidence for pulmonary emboli to the subsegmental level. 2. Stable 9 mm left lower lobe pulmonary nodule unchanged dating back to 2016. 3. Displaced right posterior 11th rib fracture potentially acute. 4. Mild superior plate compression fracture of L1 of uncertain chronicity. Report Dictated By: Diogenes Haney MD at 03/16/2019 12:46 PM Report E-Signed By: Diogenes Haney MD at 03/16/2019 12:59 PM ED Course/Re-evaluation ED Course Patient was admitted to exam room, history and physical were obtained. Differential diagnoses were considered. On examination lungs are clear, heart is regular, abdomen is soft and nontender. An IV was started, a CBC, CMP were done. Urinalysis was obtained through catheterization. I did show 15 white blood cells per high-power field as well as a trace of sinus rinse. We will go ahead and cultured that and delay treatment until we have a culture. A CT pulmonary angiogram was done which shows patient has been having some hypoxia. Have that showed no acute findings although she did have a posterior rib fracture of the ninth rib. I believe that could be causing some of her hypoxia as well as some of her abdominal pain. As she has worsening pain with standing or sitting. Laying she seems to breathe better and also has less discomfort in her abdomen. CT scan of abdomen and pelvis showed no acute findings. I discussed the findings with patient and her daughter. With this finding any significant cause of gluing go ahead and discharge patient home. The daughter requests that we go ahead and restart the patient on Sensipar. The daughter states that while the patient was on that she seemed to be cognitively better as well as falling less often. We will go ahead and give that a try. She was taking the Sensipar 30 mg every 3 d ays. We will go ahead and restart her on that. Calcium is slightly elevated at 10.4. We'll go ahead and start that and have her follow-up with her primary care provider and they can side what to do moving forward. Patient did receive her first dose here in the emergency room. Decision to Disposition Date: Mar 16, 2019 Decision to Disposition Time: 14:01 Depart Departure Latest Vital Signs Vital Signs Date Time Temp Pulse Resp B/P (MAP) Pulse Ox O2 Delivery O2 Flow Rate FiO2 03/16/19 14:22 98.0 62 18 118/78 (91) 95 Nasal Cannula 2 Impression: Primary Impression: Right rib fracture Additional Impression: Altered mental status Condition: Improved Disposition: HOME OR SELF-CARE Referrals: SEAN DEL CID MD (PCP) New Scripts Cinacalcet Hcl (SENSIPAR) 30 Mg Tablet 30 MG PO Q3D, #10 TAB Prov: JACINTO ROSS 03/16/19 Patient Instructions: Rib Fracture (ED) Additional Instructions: Increase fluid intake. Get plenty of rest. Return to the ER if condition worsens. Follow up with Dr. Del Cid next week. Take medications as prescribed. Will try the Sensipar since that seemed to help, we will again use it just every 3 days. Problem Qualifiers Primary Impression: Right rib fracture Encounter type: initial encounter Rib fracture type: single rib Fracture type: closed Qualified Codes: S22.31XA - Fracture of one rib, right side, initial encounter for closed fracture Additional Impression: Altered mental status Altered mental status type: disorientation Qualified Codes: R41.0 - Disorientation, unspecified JACINTO ROSS Mar 16, 2019 11:26
[2019-03-16] MEDS ORDERED: NS(*) 0.9% 500 ML BAG 500 ML IV ONE (11:32)
[2019-03-16] MEDS ORDERED: ALBUTEROL/IPRATROPIUM 3 ML NEB NEB ONE (11:35)
[2019-03-16 11:56] LABS: PLATELET COUNT, AUTOMATED 265 K/uL (150-450)
[2019-03-16] MEDS ORDERED: IOPAMIDOL 76% 100 ML INFUS BTL 100 ML ONE (11:57)
[2019-03-16] MEDS ORDERED: NS(*) 0.9% 50 ML BAG 50 ML ONE (11:57)
--- NOTE | 2019-03-16 11:59 | EKG ---
FACILITY: [facility] - [place] PATIENT NAME: ANJELICA DELUNA : [id number] MR: [id number] V: [id number] EXAM DATE: ORDERING PHYSICIAN: JACINTO ROSS TECHNOLOGIST: KARTIK Posey Reason : Blood Pressure : / mmHG Vent. Rate : 063 BPM Atrial Rate : 063 BPM P-R Int : 192 ms QRS Dur : 092 ms QT Int : 420 ms P-R-T Axes : 042 007 027 degrees QTc Int : 429 ms Normal sinus rhythm Nonspecific T wave abnormality No previous ECGs available Confirmed by Dilip Terry ([id number]) on 03/16/2019 4:54:53 PM Referred By: VANDANA Confirmed By:Dilip Carlos
--- NOTE | 2019-03-16 13:05 | RADIOLOGY IMAGING REPORT ---
FAC[place] [facility] [place]IENT NAME: Deidra More : 1935 MR: [id number] V: [id number] EXAM DATE: ORDERING PHYSICIAN: JACINTO ROSS TECHNOLOGIST: Location: [facility] [place] Patient: Diedra More : 1935 Visit/Account:[id number] Date of Sevice: 03/16/2019 CT CTA CHEST W & W/O CON EXAMINATION: CTA of the chest with IV contrast History : Shortness of breath, respiratory distress, chest pain, fall TECHNIQUE: Pulmonary embolus protocol - Thin-slice axial imaging of the chest was performed during maximal pulmonary arterial opacification with intravenous nonionic iodinated contrast. 3D coronal sla b MIPs and 2D reconstructions in the coronal and sagittal planes were performed to aid in pulmonary e mbolus detection. [employer] images have been stored on PACS. One of the following dose optimization techniques was utilized in the performance of this exam: Autom ated exposure control; adjustment of the mA and/or kV according to the patient's size; or use of an i terative reconstruction technique. Specific details can be referenced in the facility's radiology C T exam operational policy. Contrast: 75 cc of Isovue-370 COMPARISON STUDIES: 12/28/2016, 07/11/2016. FINDINGS: Please note that this exam is optimized for assessment of the pulmonary arteries and is not intended as a diagnostic study of the thoracic aorta, coronary arteries or venous structures. Angiographic Findings: Pulmonary arteries: There are no filling defects in the main, right, left, lobar, segmental or visual ized sub-segmental branches of the pulmonary arterial system Other vasculature: There is calcification the coronary vessels. Heart is enlarged.. Additional non-angiographic findings: Lungs / Pleura: Stable 9 x 8 mm left for lobe nodules unchanged dating back to 2015. Mediastinum / Sharon: negative. Heart / Pericardium: Enlarged. Lymph node assessment: negative Musculoskeletal / Body wall: Displaced right posterior 11th rib fracture is potentially acute. Sclerotic focus in T6 vertebral body is stable. Mild T4 compression fracture stable. Mild compression fracture of superior endplate of L1 is of uncertain chronicity. Upper abdomen: Will be described separately. Nonobstructing stones are noted in the right kidney th e largest measuring 6 mm lower pole right kidney. Renal cortical cysts are noted. Patient has an IVC filter in place IMPRESSION: 1. No evidence for pulmonary emboli to the subsegmental level. 2. Stable 9 mm left lower lobe pulmonary nodule unchanged dating back to 2015. 3. Displaced right posterior 11th rib fracture potentially acute. 4. Mild superior plate compression fracture of L1 of uncertain chronicity. Report Dictated By: Diogenes Haney MD at 03/16/2019 12:46 PM Report E-Signed By: Diogenes Haney MD at 03/16/2019 12:59 PM WSN:[id number]
--- NOTE | 2019-03-16 13:17 | RADIOLOGY IMAGING REPORT ---
FACILITY: [facility] PATIENT NAME: Deidra More : 1935 MR: [id number] V: [id number] EXAM DATE: ORDERING PHYSICIAN: JACINTO ROSS TECHNOLOGIST: Location: [facility] Patient: Deidra More : 1935 Visit/Account:[id number] Date of Sevice: 03/16/2019 CT ABDOMEN PELVIS W/ CON HISTORY: Respiratory distress, chest pain, history of blood clots, fall TECHNIQUE: CT abdomen and pelvis with intravenous contrast. Contiguous axial images of the abdomen and pelvis was performed from the lung bases to the symphysis pubis. One of the following dose optimization techniques was utilized in the performance of this exam: Autom ated exposure control; adjustment of the mA and/or kV according to the patient's size; or use of an i terative reconstruction technique. Specific details can be referenced in the facility's radiology C T exam operational policy. CONTRAST: 75 cc of Isovue-370 COMPARISON: None. FINDINGS: Visualized lung bases: Mild interstitial prominence is noted. Hepatobiliary: Small benign cyst segment 2 of the liver measures 4 mm. Gallbladder is absent. Bile d ucts are decompressed. Hepatic veins and portal veins are patent. Spleen: Negative. Adrenals: 11 mm left adrenal nodule is noted. Kidneys/: Benign bilateral renal cortical cysts are noted. Nonobstructing stones are noted in both kidney. Largest stone in the right kidney is in lower pole measures 5 mm. 4 mm nonobstructing stone is noted lower pole left kidney. No obstructing ureteral stones. Pancreas: Negative. GI: There is colonic diverticulosis. No bowel obstruction or focal inflammation. Vessels/spaces/nodes: Patient has an IVC filter in place which extends beyond the wall of the IVC. T here is chronic splenic vein occlusion with some gastric varices and dilation of the short gastric ve ins. Atherosclerotic calcification is also noted. Bones/soft tissues: L1 compression fracture involves 20% of the vertebral body height. Degenerative changes are noted. There is 3 mm of anterolisthesis of L3 with respect L4. Displaced right posterior 11th rib fracture is potentially acute. IMPRESSION: 1. Right posterior 11th rib fracture is potentially acute. 2. L1 compression fracture involves 20% of the vertebral body height, of uncertain chronicity. 3. IVC filter is noted. 4. 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 5. Numerous other chronic findings are detailed above. Report Dictated By: Diogenes Haney MD at 03/16/2019 12:59 PM Report E-Signed By: Diogenes Haney MD at 03/16/2019 1:09 PM WSN:[id number]
[2019-03-16] MEDS ORDERED: CIN30PT PO (14:03)
[2019-03-16] MEDS ORDERED: CINACALCET HCL 30 MG TABLET PO ONE (14:05)
[2019-03-16 14:22] VITALS: BP 118/78
== END 2019-03-16 14:31 | disposition home or self-care (01) ==
LOC: ER 11:33
DX: S22.31XA Fracture of one rib, right side, initial encounter for closed fracture (principal); R41.0 Disorientation, unspecified
CPT/HCPCS: 71275; 74177; 81001; 83605; 83880; 84484; 85025; 93005; 96360; 99284; A4353; A9270; J7040; J7050; J7620; Q9967; 82040; 82247; 82310; 82374; 82435; 82565; 82947; 84075; 84132; 84155; 84295; 84450; 84460; 84520

== ENCOUNTER → 2019-03-16 | Outpatient (CLI) | payer MEDICARE, BC ==
[2016-12-27 12:33] VITALS: BMI 20.3
== END ==
LOC: ZZSPRING 01:01
PROVIDERS: ATTEND Nurse Practitioner Family
DX: N39.0 Urinary tract infection, site not specified (principal)
CPT/HCPCS: 81001

== ENCOUNTER → 2019-03-30 | Outpatient (CLI) | payer MEDICARE, BC ==
[2016-12-27 12:33] VITALS: BMI 20.3
[~2019-03-30] MED LIST changes: +DOXY-179 PO
== END ==
LOC: ZZSPRING 02:32
PROVIDERS: ATTEND Emergency Medicine
DX: E21.3 Hyperparathyroidism, unspecified (principal)
CPT/HCPCS: 36415; 82310

== ENCOUNTER → 2019-04-06 | Outpatient (CLI) | payer MEDICARE, BC ==
[2016-12-27 12:33] VITALS: BMI 20.3
--- NOTE | 2019-04-07 17:38 | RT HOLTER TEST ---
FACILITY: [facility] PATIENT NAME: ANJELICA DELUNA : [id number] MR: [id number] V: [id number] EXAM DATE: ORDERING PHYSICIAN: SEAN OROZCO TECHNOLOGIST: MIGUEL Hook-up date: 2019-04-06 11:56:00 Duration: 24:09:00 Test Indications: RECURRENT FALLS Medications: N/A 03026 QRS complexes 8 Ventricular ectopics which represent <1 % of total QRS comp. 197 Supraventricular ectopics which represent <1 % of total QRS comp. * Paced QRS complexes which represent % of total QRS comp. VENTRICULAR ECTOPY 8 Isolated 0 Bigeminal Cycles 0 Couplets 0 Runs 0 Beats in Runs * Beats LONGEST at * BPM at :: -- * Beats FASTEST at * BPM at :: -- SUPRAVENTRICULAR ECTOPY 156 Isolated 12 Couplets 5 Runs 17 Beats in Runs 4 Beats LONGEST at 84 BPM at 03:52:00 2019-04-07 3 Beats FASTEST at 120 BPM at 16:55:32 2019-04-06 HEART RATES 46 MIN at 00:46:44 2019-04-07 60 AVG 85 MAX at 16:55:32 2019-04-06 LONGEST RR 1.968 secs at 07:33:46 2019-04-07 S-T LEVELS Channel 1 -12.800 mm MIN at 11:56:00 2019-04-06 -12.800 mm MAX at 11:56:00 2019-04-06 Channel 2 -12.800 mm MIN at 11:56:00 2019-04-06 -12.800 mm MAX at 11:56:00 2019-04-06 Channel 3 -12.800 mm MIN at 11:56:00 2019-04-06 -12.800 mm MAX at 11:56:00 2019-04-06 Sinus bradycardia (with rates in 45-60bpm range) was noted periodically throughout the recording. Rare ventricular ectopy. No couplets, triplets, or runs. Rare supraventricular ectopy, but with several couplets and a few three (3) and four (4) beat runs. One pause of just under two (2) seconds was recorded. Confirmed by DOC HARO ([id number]) on 04/07/2019 5:34:10 PM Referred By: Overread By: DOC HARO
== END ==
LOC: RESP 11:34
PROVIDERS: ATTEND Emergency Medicine
DX: R29.6 Repeated falls (principal)
CPT/HCPCS: 93225; 93226

== ENCOUNTER → 2019-04-20 | Outpatient (CLI) | payer MEDICARE, BC ==
[2016-12-27 12:33] VITALS: BMI 20.3
== END ==
LOC: ZZSPRING 02:31
PROVIDERS: ATTEND Emergency Medicine
DX: E21.3 Hyperparathyroidism, unspecified (principal)
CPT/HCPCS: 36415; 82310

== ENCOUNTER → 2019-04-29 | Outpatient (CLI) | payer MEDICARE, BC ==
[2016-12-27 12:33] VITALS: BMI 20.3
[~2019-04-29] MED LIST changes: +AMLO2.5T78 PO
[2019-04-29 13:05] LABS: PLATELET COUNT, AUTOMATED 212 K/uL (150-450)
--- NOTE | 2019-04-29 15:29 | EKG ---
FACILITY: [facility] [place] PATIENT NAME: ANJELICA DELUNA : [id number] MR: [id number] V: [id number] EXAM DATE: ORDERING PHYSICIAN: SEAN OROZCO TECHNOLOGIST: TARUN PCT Test Reason : ABD PAIN Blood Pressure : / mmHG Vent. Rate : 059 BPM Atrial Rate : 059 BPM P-R Int : 182 ms QRS Dur : 084 ms QT Int : 482 ms P-R-T Axes : 078 030 064 degrees QTc Int : 477 ms Sinus bradycardia T wave abnormality, consider anterior ischemia Prolonged QT Abnormal ECG No previous ECGs available Confirmed by SEAN OROZCO ([id number]) on 04/30/2019 9:04:53 AM Referred By: Confirmed By:SEAN OROZCO
== END ==
LOC: LAB 12:31
PROVIDERS: ATTEND Emergency Medicine
DX: R10.9 Unspecified abdominal pain (principal); R94.31 Abnormal electrocardiogram [ECG] [EKG]; R00.1 Bradycardia, unspecified
CPT/HCPCS: 36415; 82040; 82247; 82310; 82374; 82435; 82565; 82947; 84075; 84132; 84155; 84295; 84450; 84460; 84484; 84520; 85025; 85379; 86140